=== PATIENT | female | born 1950 | race Two or more races ===

== ENCOUNTER 2019-12-17 18:21 | Outpatient (REF) | payer MEDICARE, SELFPAY ==
[2019-12-18 09:28] LABS: MRSA Nasal PCR NEGATIVE (Negative); SA Nasal PCR NEGATIVE (Negative)
== END 2019-12-17 18:22 | disposition home or self-care (01) ==
LOC: HO.LNP 18:21
PROVIDERS: Visit Provider Orthopaedic Surgery
DX: Z01.818 Encounter for other preprocedural examination (principal)
CPT/HCPCS: 87640; 87641

== ENCOUNTER → 2019-12-26 12:39 | Outpatient (BNVA) | payer MEDICARE, SELFPAY | PROVIDERS: PCP Internal Medicine; Referring Provider Internal Medicine; Visit Provider Physician Assistant | DX: Z01.818 Encounter for other preprocedural examination (principal); M17.11 Unilateral primary osteoarthritis, right knee | CPT/HCPCS: 99212 ==

== ENCOUNTER 2019-12-31 05:48 | Inpatient (IN) | payer MEDICARE, SELFPAY ==
[2019-12-17 09:33] VITALS: BMI 30.7
[2019-12-17 13:07] VITALS: BP 152/73; PULSE 92; RESP 20; O2SAT 98
--- NOTE | 2019-12-17 13:27 | P.CONAN_ITS ---
Documented by User: Christi Byrd 12/30/19 10:57 HPI - Anesthesia Eval Consult details Narrative: 69yo F for R TKA PCP cleared [facility] Past Medical History Medical History Arthritis Asthma Back pain Chronic cough Diabetes mellitus Elevated cholesterol GERD (gastroesophageal reflux disease) HTN (hypertension) Hypothyroid Insomnia Migraine Family History Family history of problems with anesthesia: No Surgical History Surgical History History of corneal transplant History of laparoscopic appendectomy Hx of colonoscopy Hx of dilation and curettage Hx of tubal ligation Status post cataract extraction and insertion of intraocular lens of left eye History of Problems with Anesthesia: No Social History Social History Are you a primary professional healthcare representative to a significant other at home: Yes Do you presently have visiting nurse or other home services: No Smoking Status: Never smoker Second Hand Smoke Exposure: No Use of substances other than those prescribed or required for medical reasons: No Have you been hit, kicked, punched, or otherwise hurt by someone within the past year? If so, by whom?: No Advance Directives: No Advance Directives Information Provided: No Advance Directives on File: No Recently lost weight without trying: No Meds Allergies Allergy/AdvReac Type Severity Reaction Status Date / Time No Known Allergies Allergy Verified 12/26/19 12:46 [No Known Allergies*] Home Medications Medication Instructions Recorded Confirmed Type hydrochlorothiazide 25 mg PO DAILY 12/17/19 12/17/19 History levothyroxine 50 mcg PO DAILY 12/17/19 12/17/19 History levothyroxine 200 mcg PO DAILY 12/17/19 12/17/19 History losartan 25 mg PO DAILY 12/17/19 12/31/19 History metformin 500 mg PO DAILY 12/17/19 12/17/19 History multivitamin 1 tab PO DAILY 12/17/19 12/17/19 History omeprazole 20 mg PO BID 12/17/19 12/17/19 History pravastatin 40 mg PO DAILY 12/17/19 12/17/19 History tramadol 50 mg PO BID PRN 12/17/19 12/17/19 History acetaminophen 300 mg-codeine 30 mg 1 tab PO BID PRN 12/26/19 History tablet Exam Exam Date and Time: December 17, 2019 1327 Height,Weight and Vital Signs: Height 5 ft Weight 71.214 kg Last Vital Signs Pulse 92 12/17/19 13:07 Resp 20 12/17/19 13:07 BP 152/73 H 12/17/19 13:07 Pulse Ox 98 12/17/19 13:07 Pertinent Lab Results Pertinent Lab Results: Lab Results 12/17/19 Range/Units 14:45 Blood Type B Positive Antibody Screen NEGATIVE Laboratory Tests 12/17/19 Unknown Nasal Screen MRSA (PCR) NEGATIVE Nasal S. aureus Screen NEGATIVE Outside provider labs 12/10/19: CBC WNL Lytes, Bun, Creat: WNL Narrative Narrative: PFT 12/04/19: No obstructive or restrictive defect. No significant bronchodilator response. Nml lung volumes and normal diffusion capacity. EKG 12/24/19: NSR@82, no change from previous Airway Mallampati Class: I TM Dist: >3cm Neck ROM: Full Loose/Missing/Broken Teeth: Yes Heart: RRR Lungs: CTAB Assessment and Plan Assessment Anesthesia Assessment: Anesthesia Plan Discussed and PAT Visit Documented by User: Lloyd Patrick MD 12/31/19 08:15 PMF Past Medical History Medical History Arthritis Asthma Back pain Chronic cough Diabetes mellitus Elevated cholesterol GERD (gastroesophageal reflux disease) HTN (hypertension) Hypothyroid Insomnia Migraine Surgical History Surgical History History of corneal transplant History of laparoscopic appendectomy Hx of colonoscopy Hx of dilation and curettage Hx of tubal ligation Status post cataract extraction and insertion of intraocular lens of left eye Social History Social History Are you a primary professional healthcare representative to a significant other at home: Yes Do you presently have visiting nurse or other home services: No Smoking Status: Never smoker Second Hand Smoke Exposure: No Use of substances other than those prescribed or required for medical reasons: No Have you been hit, kicked, punched, or otherwise hurt by someone within the past year? If so, by whom?: No Advance Directives: No Advance Directives Information Provided: No Advance Directives on File: No Recently lost weight without trying: No Meds Allergies Allergy/AdvReac Type Severity Reaction Status Date / Time No Known Allergies Allergy Verified 12/26/19 12:46 [No Known Allergies*] Home Medications Medication Instructions Recorded Confirmed Type hydrochlorothiazide 25 mg PO DAILY 12/17/19 12/17/19 History levothyroxine 50 mcg PO DAILY 12/17/19 12/17/19 History levothyroxine 200 mcg PO DAILY 12/17/19 12/17/19 History losartan 25 mg PO DAILY 12/17/19 12/31/19 History metformin 500 mg PO DAILY 12/17/19 12/17/19 History multivitamin 1 tab PO DAILY 12/17/19 12/17/19 History omeprazole 20 mg PO BID 12/17/19 12/17/19 History pravastatin 40 mg PO DAILY 12/17/19 12/17/19 History tramadol 50 mg PO BID PRN 12/17/19 12/17/19 History acetaminophen 300 mg-codeine 30 mg 1 tab PO BID PRN 12/26/19 History tablet Assessment and Plan Assessment Anesthesia Assessment: Anesthesia Plan Discussed, Smoking Cess. Discussed and Chart Reviewed Final Anesthetic Review NPO: Yes ASA Class: III Final Preanesthetic Review: No Changes in Pt Med Stat, Meds/Allgs Chart Reviewed, Consent Obtained/Reviewed and Anes Risks/Benef Reviewed Patient Risk: Intermediate Procedure Risk: Intermediate Anesthetic Plan Anesthetic Plan: MAC:, Spinal and Regional Block Disposition: Standard PACU
[2019-12-31] VITALS (12 sets, daily range): BP systolic 98–176; BP diastolic 53–81; PULSE 58–84; RESP 16–17; TEMP 36.3–36.9; O2SAT 96–100
[2019-12-31] MEDS: Gabapentin 600 MG TABLET PO (06:22)
[2019-12-31] MEDS: ceFAZolin Sodium/Dextrose,Iso 2 GM/50 ML PIGGYBACK IV ×2 (06:22→13:09)
[2019-12-31 06:23] LABS: Glucose, Whole Blood 113 mg/dL (60-115)
[2019-12-31] MEDS: Lactated Ringers 1,000 ML 100 ML IVCONT (06:41)
[2019-12-31 06:48] LABS: SARS COV2 PCR INHOUSE NEGATIVE (Negative)
--- NOTE | 2019-12-31 09:08 | PM.OP ---
Brief Operative Note Date of procedure: 12/31/19 Pre-op diagnosis: right knee OA Post-op diagnosis: same Procedure: right TKA Implants: [place] triathalon press fit PS/31s Surgeon: Ilya Nichols MD Anesthesia: regional and spinal Estimated blood loss (mL): 100 IV fluids (mL): 600 Pathology: other Condition: stable Disposition: PACU
--- NOTE | 2019-12-31 09:29 | MHC.SHP ---
Pre-Procedural Eval Section A The patient is an INPATIENT: No Changes since office visit: Yes Patient answered all questions; No Cold of Flu in the past 2 weeks, No New Medical Problems and No Changes in Medication The History & Physical has been completed within 30 days and I have reviewed it.: Yes Section B Chief Complaint: Orthopedic surgery Allergies: Allergies Allergy/AdvReac Type Severity Reaction Status Date / Time No Known Allergies Allergy Verified 12/26/19 12:46 [No Known Allergies*] Plan Patient has been examined and remains a candidate for the planned procedure
--- NOTE | 2019-12-31 10:16 | XR_ITS ---
EXAMINATION: XR KNEE, RIGHT CLINICAL INFORMATION: Post right knee replacement COMPARISON: Previous x-ray August 2019 TECHNIQUE: Two views of the right knee. FINDINGS: There is a new 3 component right knee replacement in satisfactory position. No fracture or dislocation is seen. There are postoperative changes to the soft tissues. XR/XR knee RT 2V IMPRESSION: Satisfactory appearance of right knee replacement.
[2019-12-31] MEDS: Sodium Chloride 0.45 % 1,000 ML 100 ML IVCONT ×2 (10:59→21:38)
[2019-12-31 11:06] LABS: Glucose, Whole Blood 115 mg/dL (60-115)
[2019-12-31] MEDS: oxyCODONE HCl Immed Release 5 MG TABLET PO ×3 (12:06→21:39)
[2019-12-31] MEDS: Acetaminophen 325 MG TABLET 650 MG PO ×2 (12:06→19:44)
--- NOTE | 2019-12-31 12:47 | OP_ITS ---
SURGEON: Ilya Nichols MD INDICATIONS: This is a 69-year-old woman with severe valgus pattern osteoarthritis, right knee, who was consented to undergo operative intervention after failure of conservative measures and inability to ambulate without severe discomfort and difficulty. PREOPERATIVE DIAGNOSIS: Right knee osteoarthritis. POSTOPERATIVE DIAGNOSIS: Right knee osteoarthritis. PROCEDURE PERFORMED: Right total knee arthroplasty. ESTIMATED BLOOD LOSS: 100 mL. COMPLICATIONS: None. ANESTHESIA: Spinal and regional. ASSISTANTS: OLGA Tay. SPECIMENS: FLUIDS: 600. PROCEDURE IN DETAIL: The patient was brought to the operative room, placed supine on the operative table and prepped and draped in standard sterile fashion. A time-out was called to identify proper site, procedure, proper surgeon. IV antibiotics per weight were administered. I began by making a standard midline incision down to the retinaculum and performed a medial parapatellar arthrotomy. I then resected the fat pad, used Freeland's line to establish my intramedullary femoral guide and then made my distal femoral cut in 5 degrees of valgus. I then sized a size 2 femur and made my anterior posterior and chamfer cuts, protecting the soft tissues at all times. I then made my box cut removing the PCL and turned my attention to the tibia. I took 2-mm off the lateral side in line with the tibial crest and posterior soft tissues were protected all times and an extension block was trialed to assess the extension. I was happy with the extent of resection. Therefore, a size 3 tibia was trialed. I was happy with the fit and this was trialed with the femur and I was happy with the range of motion and stability. Therefore, the undersurface of the patella was resurfaced and a 31S patella was placed. Again, I took the knee through range of motion, was happy with the tracking, range and stability. Therefore, the lug holes in the tibial metaphysis were prepared. All instrumentations were then removed. Copious irrigation was performed. The femoral bone plug was placed and placed the tibia and femur in standard fashion and then the patella. I then trialed a 9PS and was happy with the extension, range, stability and tracking. Therefore, my final 9PS modular insert was placed. I then did the 3 minute iodine soak with local TXA. Layered closure was then performed with cely on the skin. The patient was placed on sterile dressing, awakened from sedation, brought to recovery room in stable condition. There were no known complications. GRAFT OR IMPLANTS: [employer] Tri[employer]lon press-fit with PS/31S. MD NIKA Nava/WILLIE / [id number]
[2019-12-31] MEDS: HYDROmorphone HCl 0.5 MG/0.5 ML SYRINGE 0.25 MG IVPUSH ×2 (13:56→17:56)
--- NOTE | 2019-12-31 16:00 | MHC.CM.PN ---
nurse caretaker resort note electronic medical record reviewe met with patient and explained the role of the nurse caretaker resort in the transition of hospitla to home. patient is opertqtive day s/p r-tka. she was awake and alert , orientated x3 she reported she maggie alone she is active, independent in all alds and mobility she has no servcies in the home, patient sees dr dave lou at the [facility] , educated [facility] the [facility]. discharge plan home with naaly macedo for home physical theapry pcp patient to [facility] and follow up with, post hospital discharge orthopedic surgical follow up per discharge instructions transportation family
--- NOTE | 2019-12-31 16:24 | P.CONIM_ITS ---
History of Present Illness Data of Consult Primary Care Provider: Unknown Physician [facility] Medical History Arthritis Asthma Back pain Chronic cough Diabetes mellitus Elevated cholesterol GERD (gastroesophageal reflux disease) HTN (hypertension) Hypothyroid Insomnia Migraine Surgical History History of corneal transplant History of laparoscopic appendectomy Hx of colonoscopy Hx of dilation and curettage Hx of tubal ligation Status post cataract extraction and insertion of intraocular lens of left eye Social History Are you a primary family day care provider to a significant other at home: Yes Do you presently have visiting nurse or other home services: No Smoking Status: Never smoker Second Hand Smoke Exposure: No Use of substances other than those prescribed or required for medical reasons: No Have you been hit, kicked, punched, or otherwise hurt by someone within the past year? If so, by whom?: No Advance Directives: No Advance Directives Information Provided: No Advance Directives on File: No Recently lost weight without trying: No service: No Current occupational status: unemployed Meds Allergies Allergy/AdvReac Type Severity Reaction Status Date / Time No Known Allergies Allergy Verified 12/26/19 12:46 [No Known Allergies*] Home Medications Medication Instructions Recorded Confirmed Type hydrochlorothiazide 25 mg PO DAILY 12/17/19 12/17/19 History levothyroxine 50 mcg PO DAILY 12/17/19 12/17/19 History levothyroxine 200 mcg PO DAILY 12/17/19 12/17/19 History losartan 25 mg PO DAILY 12/17/19 12/31/19 History metformin 500 mg PO DAILY 12/17/19 12/17/19 History multivitamin 1 tab PO DAILY 12/17/19 12/17/19 History omeprazole 20 mg PO BID 12/17/19 12/17/19 History pravastatin 40 mg PO DAILY 12/17/19 12/17/19 History tramadol 50 mg PO BID PRN 12/17/19 12/17/19 History acetaminophen 300 mg-codeine 30 mg 1 tab PO BID PRN 12/26/19 History tablet Physical Exam Vital Signs and Narrative: Vital Signs: Last Vital Signs Temp 98.2 F 12/31/19 15:05 Pulse 66 12/31/19 15:05 Resp 17 12/31/19 15:05 BP 154/75 H 12/31/19 15:05 Pulse Ox 100 12/31/19 15:05 Body Mass Index 30.7 Results Labs Labs: Laboratory Tests 12/17/19 12/31/19 12/31/19 14:45 05:41 06:19 POC Glucose 113 Coronavirus (PCR) NEGATIVE Blood Type B Positive Antibody Screen NEGATIVE 12/31/19 11:02 POC Glucose 115 Coronavirus (PCR) Blood Type Antibody Screen
--- NOTE | 2019-12-31 20:03 | PM.IMCN ---
History of Present Illness Data of Consult Service Date: 12/31/19 Requesting physician: Vinicio Sauceda Primary Care Provider: Unknown Physician HPI Reason for consult: Medical Management 69-year-old woman admitted by Orthopedic surgery status post right total knee arthroplasty. Surgery was unremarkable. Patient has been able to eat and drink without any nausea or vomiting. She has been able to get up and walk to the bathroom. Vital signs are stable though her blood pressure is mildly elevated. She is currently resting in bed comfortably. Review of Systems Review of Systems: Denies any recent fever chills or decrease in appetite respiratory denies any shortness of breath coverage production cardiovascular is adjustment of any PND or edema gastrointestinal denies any dysphagia abdominal pain nausea vomiting or diarrhea genitourinary denies any dysuria frequency or hematuria musculoskeletal Knee pain neuropsych denies any weakness or seizures all other systems reviewed are negative [facility] Medical History Arthritis Asthma Back pain Chronic cough Diabetes mellitus Elevated cholesterol GERD (gastroesophageal reflux disease) HTN (hypertension) Hypothyroid Insomnia Migraine Surgical History History of corneal transplant History of laparoscopic appendectomy Hx of colonoscopy Hx of dilation and curettage Hx of tubal ligation Status post cataract extraction and insertion of intraocular lens of left eye Social History Are you a primary healthcare management consultant to a significant other at home: Yes Do you presently have visiting nurse or other home services: No Smoking Status: Never smoker Second Hand Smoke Exposure: No Use of substances other than those prescribed or required for medical reasons: No Currently Displaying Signs/Symptoms of Drug Intoxication Withdrawal: No Have you been hit, kicked, punched, or otherwise hurt by someone within the past year? If so, by whom?: No Advance Directives: No Advance Directives Information Provided: No Advance Directives on File: No Do you have thoughts of harming others: None Do you have a plan to hurt others: No Plan Recently lost weight without trying: No service: No Current occupational status: unemployed Meds Allergies Allergy/AdvReac Type Severity Reaction Status Date / Time No Known Allergies Allergy Verified 12/26/19 12:46 [No Known Allergies*] Home Medications Medication Instructions Recorded Confirmed Type hydrochlorothiazide 25 mg PO DAILY 12/17/19 12/17/19 History levothyroxine 50 mcg PO DAILY 12/17/19 12/17/19 History levothyroxine 200 mcg PO DAILY 12/17/19 12/17/19 History losartan 25 mg PO DAILY 12/17/19 12/31/19 History metformin 500 mg PO DAILY 12/17/19 12/17/19 History multivitamin 1 tab PO DAILY 12/17/19 12/17/19 History omeprazole 20 mg PO BID 12/17/19 12/17/19 History pravastatin 40 mg PO DAILY 12/17/19 12/17/19 History tramadol 50 mg PO BID PRN 12/17/19 12/17/19 History acetaminophen 300 mg-codeine 30 mg 1 tab PO BID PRN 12/26/19 History tablet Physical Exam Vital Signs and Narrative: Vital Signs: Last Vital Signs Temp 98.2 F 12/31/19 19:51 Pulse 84 12/31/19 19:51 Resp 16 12/31/19 19:51 BP 176/81 H 12/31/19 19:51 Pulse Ox 98 12/31/19 19:51 Body Mass Index 30.7 Appearing in no acute distress head is normocephalic atraumatic eyes pupils are PERRLA sclera is anicteric mouth throat mucous membranes are intact and moist neck is supple no lymphadenopathy, no JVD noted lung sounds are clear to auscultation heart regular rate rhythm, clear S1, S2 positive bowel sounds, abdomen is soft, nontender neuro patient is alert x3, no focal deficits msk dressing to right knee clean and intact Results Labs Labs: Laboratory Tests 12/17/19 12/31/19 12/31/19 14:45 05:41 06:19 POC Glucose 113 Coronavirus (PCR) NEGATIVE Blood Type B Positive Antibody Screen NEGATIVE 12/31/19 11:02 POC Glucose 115 Coronavirus (PCR) Blood Type Antibody Screen Assessment and Plan (1) Osteoarthritis of right knee: Status: Acute 69 year old women status post right total knee arthroplasty. Right total knee arthroplasty. Management as per surgical team. Pain management. Diabetes mellitus. Sliding scale, ADA diet. Hypertension . Continue hydrochlorothiazide And losartan. Hyperlipidemia . Continue statin. Hypothyroidism . Continue levothyroxine. DVT prophylaxis as per surgical team. Case discussed with Dr. Parekh Full code
[2019-12-31 20:50] LABS: Glucose, Whole Blood 166 mg/dL (60-115)
[2019-12-31] MEDS: Omeprazole 20 MG CAPSULE.DR PO (21:39)
[2019-12-31] MEDS: hydroCHLOROthiazide 25 MG TABLET PO (21:39)
[2019-12-31] MEDS: Celecoxib 200 MG CAPSULE PO (21:39)
[2019-12-31] MEDS: oxyCODONE HCl ER 10 MG TAB.ER.12H PO (21:39)
[2019-12-31] MEDS: Losartan Potassium 25 MG TABLET PO (21:40)
[2020-01-01] VITALS (9 sets, daily range): BP systolic 126–177; BP diastolic 56–82; PULSE 80–99; RESP 16–19; TEMP 36.4–37.3; O2SAT 97–100; BMI 30.7
[2020-01-01] MEDS: HYDROmorphone HCl 0.5 MG/0.5 ML SYRINGE 0.25 MG IVPUSH ×4 (01:36→17:26)
--- NOTE | 2020-01-01 03:48 | PC.NURSE ---
pt's bp at 1999 was 176/81. Polwire message sent to Haylee Anna, she said to start BP meds tonight. Losartan and hydrochlorathiazide given at bedtime, pt's BP at 0000 was 150/72.
[2020-01-01] MEDS: oxyCODONE HCl Immed Release 5 MG TABLET PO ×4 (05:20→20:34)
[2020-01-01] MEDS: Levothyroxine Sodium 50 MCG TABLET PO (05:22)
[2020-01-01] MEDS: Levothyroxine Sodium 200 MCG TABLET PO (05:22)
[2020-01-01] MEDS: Acetaminophen 325 MG TABLET 650 MG PO ×2 (05:22→14:20)
[2020-01-01] MEDS: Sodium Chloride 0.45 % 1,000 ML 100 ML IVCONT ×2 (05:55→17:29)
[2020-01-01 06:45] LABS: Hematocrit 35.9 % (37-47); Hemoglobin 11.4 g/dl (12.0-16.0)
[2020-01-01 06:59] LABS: Anion Gap 13 (12-20); Blood Urea Nitrogen 8 mg/dL (9-16); Calcium 8.7 mg/dL (8.4-10.2); Carbon Dioxide 24 mmol/L (22-29); Chloride 96 mmol/L (96-108); Creatinine Clr Calc Pharmacy 73.3; Estimated Glomerular Filt Rate > 60; Glucose Fasting 160 mg/dL (60-99); Potassium 3.6 mmol/l (3.3-5.1); Sodium 129 mmol/L (135-145)
[2020-01-01] MEDS: Losartan Potassium 25 MG TABLET PO (07:47)
[2020-01-01] MEDS: hydroCHLOROthiazide 25 MG TABLET PO (07:47)
[2020-01-01 07:51] LABS: Glucose, Whole Blood 155 mg/dL (60-115)
[2020-01-01] MEDS: Celecoxib 200 MG CAPSULE PO ×2 (08:27→20:34)
[2020-01-01] MEDS: Pravastatin Sodium 40 MG TABLET PO (08:27)
[2020-01-01] MEDS: oxyCODONE HCl ER 10 MG TAB.ER.12H PO ×2 (08:27→20:34)
[2020-01-01] MEDS: Multivitamin TABLET 1 TAB PO (08:27)
[2020-01-01] MEDS: Omeprazole 20 MG CAPSULE.DR PO ×2 (08:27→20:34)
--- NOTE | 2020-01-01 09:13 | HO.PM.IMPN ---
Subjective Subjective Date of Service: 01/01/20 Interval History: Seen in follow up for for med consult s/p knee replacement post op day 1, doing well, 6/10 pain, able to walk with walker Review of Systems Gen: no fever or covid symptoms Musck: knee pain Physical Exam Vital Signs: Vital Signs: Vital Signs Temp Pulse Resp BP Pulse Ox 01/01/20 07:33 97.5 F 87 17 177/82 H 99 01/01/20 04:00 98.8 F 81 16 159/82 H 97 01/01/20 00:00 98.3 F 86 18 150/72 H 12/31/19 21:40 84 176/81 H 12/31/19 19:51 98.2 F 84 16 176/81 H 98 12/31/19 15:05 98.2 F 66 17 154/75 H 100 12/31/19 13:58 67 134/67 99 12/31/19 10:38 97.3 F 67 134/67 99 12/31/19 10:00 58 16 120/60 98 12/31/19 09:45 60 16 123/58 L 99 12/31/19 09:30 60 16 111/58 L 99 12/31/19 09:25 60 16 105/58 L 97 12/31/19 09:20 66 16 102/53 L 96 12/31/19 09:15 97.5 F 68 16 98/53 L 97 Constitutional Awake and Alert, No apparent distress Neck Supple, No lymphadenopathy Cardiovascular RRR, No M/R/G, S1 S2, No S3 S4, No pedal edema Respiratory Lungs clear, No respiratory distress Gastrointestinal Non tender, Non-distended Skin knee replacement dressing intact Neurological Alert & oriented x3 Psychological Appropriate affect Objective Data Current Medications Generic Name Dose Route Start Last Admin Trade Name Freq PRN Reason Stop Dose Admin Acetaminophen 650 mg 12/31/19 10:38 01/01/20 05:22 Acetaminophen 325 Mg Tablet PO 650 mg Q6H PRN Administration Pain, Mild (Pain Scale 1-3) Albuterol Sulfate 2.5 mg 12/31/19 05:43 Albuterol Sulfate (0.083%) 2.5 Mg/3 Ml Vial.Neb INHALE ONCE PRN Shortness of Breath/Wheezing Celecoxib 200 mg 12/31/19 21:00 01/01/20 08:27 Celecoxib 200 Mg Capsule PO 200 mg BID BENIGNO Administration Hydrochlorothiazide 25 mg 01/01/20 09:00 01/01/20 07:47 Hydrochlorothiazide 25 Mg Tablet PO 25 mg DAILY BENIGNO Administration Protocol Hydromorphone HCl 0.25 mg 12/31/19 10:38 01/01/20 07:46 Hydromorphone Hcl 0.5 Mg/0.5 Ml Syringe IVPUSH 0.25 mg Q4H PRN Administration Pain, Severe (Pain Scale 7-10) Sodium Chloride 1,000 mls @ 100 mls/hr 12/31/19 09:30 01/01/20 05:55 IVCONT 100 mls/hr .Q10H BENIGNO Administration Insulin Human Lispro 0 unit 12/31/19 21:00 01/01/20 07:50 Insulin Lispro 100 Unit/Ml 3 Ml Vial SUBCUT Not Given [facility] Protocol Levothyroxine Sodium 50 mcg 01/01/20 06:30 01/01/20 05:22 Levothyroxine Sodium 50 Mcg Tablet PO 50 mcg DAILY@0630 BENIGNO Administration Levothyroxine Sodium 200 mcg 01/01/20 06:30 01/01/20 05:22 Levothyroxine Sodium 200 Mcg Tablet PO 200 mcg DAILY@0630 BENIGNO Administration Losartan Potassium 25 mg 01/01/20 09:00 01/01/20 07:47 Losartan Potassium 25 Mg Tablet PO 25 mg DAILY BENIGNO Administration Protocol Multivitamins/Vitamin C 1 tab 01/01/20 09:00 01/01/20 08:27 Multivitamin Tablet PO 1 tab DAILY BENIGNO Administration Naloxone HCl 0.2 mg 12/31/19 10:38 Naloxone Hcl 0.4 Mg/Ml Vial IVPUSH Q2M PRN Excessive sedation or RR < 8 Omeprazole 20 mg 12/31/19 21:00 01/01/20 08:27 Omeprazole 20 Mg Capsule.Dr PO 20 mg BID BENIGNO Administration Oxycodone HCl 5 mg 12/31/19 10:38 01/01/20 05:20 Oxycodone Hcl Immed Release 5 Mg Tablet PO 5 mg Q4H PRN Administration Pain, Moderate (Pain Scale 4-6 Oxycodone HCl 10 mg 12/31/19 21:00 01/01/20 08:27 Oxycodone Hcl Er 10 Mg Tab.Er.12h PO 10 mg BID BENIGNO Administration Pravastatin Sodium 40 mg 01/01/20 09:00 01/01/20 08:27 Pravastatin Sodium 40 Mg Tablet PO 40 mg DAILY BENIGNO Administration Senna 17.2 mg 12/31/19 10:38 Sennosides 8.6 Mg Tablet PO BEDTIME PRN Constipation Sodium Chloride 3 ml 12/31/19 16:00 01/01/20 07:50 0.9 % Sodium Chloride Flush 3 Ml Syringe IVFLUSH Not Given QSHIFT BENIGNO Sodium Chloride 3 ml 12/31/19 16:00 01/01/20 07:57 0.9 % Sodium Chloride Flush 3 Ml Syringe IVFLUSH Not Given QSHIFT BENIGNO Labs CBC & Chem 7: 01/01/20 05:41 01/01/20 05:41 Assessment and Plan (1) Osteoarthritis of right knee: Status: Acute (2) Hypothyroid: Status: Acute (3) Diabetes mellitus: Problem details: NIDDM Status: Acute (4) HTN (hypertension): Status: Acute Assessment and Plan: 69/F with HTN, DM status post right total knee arthroplasty. Right total knee arthroplasty. Defer manaement to ortho service Diabetes mellitus. Restart Metformin 500 daily, SSI and ADA Hypertension . Continue hydrochlorothiazide And losartan. BP is high this morning and if remain high adjust meds Hyperlipidemia . Continue Pravastatin Hypothyroidism . Continue levothyroxine. DVT prophylaxis as per surgical team.
[2020-01-01] MEDS: Aspirin 325 MG TABLET PO ×2 (10:08→20:34)
--- NOTE | 2020-01-01 10:47 | P.PNOP_ITS ---
Subjective Subjective Interval history: POD 1 s/p RT tka No overnight events, doing well, working with PT. NO concerns. Physical Exam Vital Signs: Vital Signs: Vital Signs Temp Pulse Resp BP Pulse Ox 01/01/20 09:13 87 177/82 H 99 01/01/20 07:33 97.5 F 87 17 177/82 H 99 01/01/20 04:00 98.8 F 81 16 159/82 H 97 01/01/20 00:00 98.3 F 86 18 150/72 H 12/31/19 21:40 84 176/81 H 12/31/19 19:51 98.2 F 84 16 176/81 H 98 12/31/19 15:05 98.2 F 66 17 154/75 H 100 12/31/19 13:58 67 134/67 99 Body Mass Index 30.7 Const: General: cooperative, healthy appearing and no acute distress Resp: Effort & Inspection: normal respiratory effort and able to speak in complete sentences Cardio: Rate: regular rate Peripheral pulses: Peripheral pulses 2+ throughout GI: Inspection: Yes normal to inspection Palpation (GI): Soft to palpation Skin: General skin exam: no rashes or lesions noted Extrem: Other: Right knee skin intact, bandage intact no drainage, no erythema, mild edema Progress Note: A&P Assessment and plan (1) Status post total right knee replacement: Status: Acute Assessment and Plan: Continue pain mgmnt Begin asa for dvt ppx begin PT for RT TKA Dispo planning-Pending PT eval, pain mgmnt Fall Risk Details Current Medications: Current Medications Generic Name Dose Route Start Last Admin Trade Name Tundeq PRN Reason Stop Dose Admin Acetaminophen 650 mg 12/31/19 10:38 01/01/20 05:22 Acetaminophen 325 Mg Tablet PO 650 mg Q6H PRN Administration Pain, Mild (Pain Scale 1-3) Albuterol Sulfate 2.5 mg 12/31/19 05:43 Albuterol Sulfate (0.083%) 2.5 Mg/3 Ml Vial.Neb INHALE ONCE PRN Shortness of Breath/Wheezing Aspirin 325 mg 01/01/20 10:00 01/01/20 10:08 Aspirin 325 Mg Tablet PO 325 mg BID BENIGNO Administration Celecoxib 200 mg 12/31/19 21:00 01/01/20 08:27 Celecoxib 200 Mg Capsule PO 200 mg BID BENIGNO Administration Hydrochlorothiazide 25 mg 01/01/20 09:00 01/01/20 07:47 Hydrochlorothiazide 25 Mg Tablet PO 25 mg DAILY BENIGNO Administration Protocol Hydromorphone HCl 0.25 mg 12/31/19 10:38 01/01/20 07:46 Hydromorphone Hcl 0.5 Mg/0.5 Ml Syringe IVPUSH 0.25 mg Q4H PRN Administration Pain, Severe (Pain Scale 7-10) Sodium Chloride 1,000 mls @ 100 mls/hr 12/31/19 09:30 01/01/20 05:55 IVCONT 100 mls/hr .Q10H BENIGNO Administration Insulin Human Lispro 0 unit 12/31/19 21:00 01/01/20 07:50 Insulin Lispro 100 Unit/Ml 3 Ml Vial SUBCUT Not Given QIDACHS [facility] Protocol Levothyroxine Sodium 50 mcg 01/01/20 06:30 01/01/20 05:22 Levothyroxine Sodium 50 Mcg Tablet PO 50 mcg DAILY@0630 BENIGNO Administration Levothyroxine Sodium 200 mcg 01/01/20 06:30 01/01/20 05:22 Levothyroxine Sodium 200 Mcg Tablet PO 200 mcg DAILY@0630 BENIGNO Administration Losartan Potassium 25 mg 01/01/20 09:00 01/01/20 07:47 Losartan Potassium 25 Mg Tablet PO 25 mg DAILY [facility] Administration Protocol Multivitamins/Vitamin C 1 tab 01/01/20 09:00 01/01/20 08:27 Multivitamin Tablet PO 1 tab DAILY BENIGNO Administration Naloxone HCl 0.2 mg 12/31/19 10:38 Naloxone Hcl 0.4 Mg/Ml Vial IVPUSH Q2M PRN Excessive sedation or RR < 8 Omeprazole 20 mg 12/31/19 21:00 01/01/20 08:27 Omeprazole 20 Mg Capsule.Dr PO 20 mg BID BENIGNO Administration Oxycodone HCl 5 mg 12/31/19 10:38 01/01/20 09:32 Oxycodone Hcl Immed Release 5 Mg Tablet PO 5 mg Q4H PRN Administration Pain, Moderate (Pain Scale 4-6 Oxycodone HCl 10 mg 12/31/19 21:00 01/01/20 08:27 Oxycodone Hcl Er 10 Mg Tab.Er.12h PO 10 mg BID BENIGNO Administration Pravastatin Sodium 40 mg 01/01/20 09:00 01/01/20 08:27 Pravastatin Sodium 40 Mg Tablet PO 40 mg DAILY BENIGNO Administration Senna 17.2 mg 12/31/19 10:38 Sennosides 8.6 Mg Tablet PO BEDTIME PRN Constipation Sodium Chloride 3 ml 12/31/19 16:00 01/01/20 07:50 0.9 % Sodium Chloride Flush 3 Ml Syringe IVFLUSH Not Given QSHIFT BENIGNO Sodium Chloride 3 ml 12/31/19 16:00 01/01/20 07:57 0.9 % Sodium Chloride Flush 3 Ml Syringe IVFLUSH Not Given QSHIFT BENIGNO Time Spent With Patient Time: Total time spent is greater than 50% in coordination of care (as documented) at patient's floor/unit and/or counseling patient: Time with patient: 15 - 24 minutes
[2020-01-01 11:38] LABS: Glucose, Whole Blood 143 mg/dL (60-115)
--- NOTE | 2020-01-01 13:58 | HO.POSTANES ---
Post Anesthesia Evaluation Post Anesthesia Evaluation Vital Signs: Vital Signs Temp Pulse Resp BP Pulse Ox 01/01/20 13:48 80 131/62 98 01/01/20 11:15 99.2 F 80 17 131/62 98 01/01/20 09:13 87 177/82 H 99 01/01/20 07:33 97.5 F 87 17 177/82 H 99 01/01/20 04:00 98.8 F 81 16 159/82 H 97 Anesthesia: Spinal Mental Status: Awake Pain Control: Satisfactory Nausea/Vomiting: None Hydration: Adequate Anesthesia-Related Issues: No Anes. Related Issues
[2020-01-01 15:26] LABS: Glucose, Whole Blood 194 mg/dL (60-115)
--- NOTE | 2020-01-01 15:43 | MHC.CM.PN ---
NURSE BREAKFAST AND ROOM ATTENDANT NOTE ELECTRONIC MEDICAL RECORD REVIEWED ALNG WITH CASE DISCUSSED WITH STAFF NURSE, MET WITH PATIENT TODAY , SHE REPORTED THAT SHE WAS NOT ABLE TO SLEEP LAST NIGHT SECONDARY TO PAIN AND BEING IN THE HOSPITAL AND WAS PRETTY TIRED THIS MORNING LATER VISIT WITH HER SHE REPORTED THAT SHE DID BETTER WITH PHYSICAL THEAPRY THAN SHE THOUGHT SHE WOULD AND ANTICIPATED BEING DISCHARGED IN TWO DAYS , I INFORMED HER THAT SHE WAS PROGRESSING WELL WITH THEARPY AND MEDICALLY CLEARED SHE MIGHT BE DISCHARGED TOMORROW . I EXPLAINED THAT THE VNA AGENCY SHE CHOSE WOULD BE OUT THE FOLLOWING DAY FOR HOME PHYSICAL THEARPY DISCHARGE HOME WITH [facility] HOME PHYSICAL THEAPRY PCP -PATIENT TO FOLLOW UP WITH HER PCP AT [facility] DIS[facility] FOLOW UP TRANSPORTATION FAMILY
[2020-01-01 21:15] LABS: Glucose, Whole Blood 126 mg/dL (60-115)
[2020-01-02 01:08] VITALS: RESP 16
[2020-01-02] MEDS: HYDROmorphone HCl 0.5 MG/0.5 ML SYRINGE 0.25 MG IVPUSH (01:08)
[2020-01-02] MEDS: Sodium Chloride 0.45 % 1,000 ML 100 ML IVCONT (01:08)
[2020-01-02 03:09] VITALS: BP 139/58; PULSE 88; RESP 19; TEMP 37.1; O2SAT 96
[2020-01-02] MEDS: oxyCODONE HCl Immed Release 5 MG TABLET PO ×2 (05:27→10:20)
[2020-01-02] MEDS: Acetaminophen 325 MG TABLET 650 MG PO (05:27)
[2020-01-02] MEDS: Levothyroxine Sodium 200 MCG TABLET PO (05:28)
[2020-01-02] MEDS: Levothyroxine Sodium 50 MCG TABLET PO (05:28)
[2020-01-02 06:49] LABS: Hematocrit 31.8 % (37-47); Hemoglobin 10.3 g/dl (12.0-16.0)
[2020-01-02 07:20] LABS: Anion Gap 11 (12-20); Blood Urea Nitrogen 11 mg/dL (9-16); Calcium 8.5 mg/dL (8.4-10.2); Carbon Dioxide 28 mmol/L (22-29); Chloride 101 mmol/L (96-108); Creatinine Clr Calc Pharmacy 67.7; Estimated Glomerular Filt Rate > 60; Glucose Fasting 142 mg/dL (60-99); Potassium 3.9 mmol/l (3.3-5.1); Sodium 136 mmol/L (135-145)
[2020-01-02 08:00] VITALS: BP 118/68; PULSE 81; RESP 18; TEMP 36.6; O2SAT 97
[2020-01-02 08:25] LABS: Glucose, Whole Blood 132 mg/dL (60-115)
[2020-01-02] MEDS: Multivitamin TABLET 1 TAB PO (08:44)
[2020-01-02] MEDS: Pravastatin Sodium 40 MG TABLET PO (08:44)
[2020-01-02] MEDS: Celecoxib 200 MG CAPSULE PO (08:44)
[2020-01-02] MEDS: Omeprazole 20 MG CAPSULE.DR PO (08:44)
[2020-01-02] MEDS: Aspirin 325 MG TABLET PO (08:44)
[2020-01-02] MEDS: oxyCODONE HCl ER 10 MG TAB.ER.12H PO (08:44)
[2020-01-02] MEDS: Losartan Potassium 25 MG TABLET PO (08:44)
[2020-01-02] MEDS: hydroCHLOROthiazide 25 MG TABLET PO (08:45)
--- NOTE | 2020-01-02 09:43 | P.PNIM_ITS ---
Subjective Subjective Interval History: POD 2 s/p RT TKR. No new issues. Pain is controlled Physical Exam Vital Signs: Vital Signs: Vital Signs Temp Pulse Resp BP Pulse Ox 01/02/20 08:00 97.8 F 81 18 118/68 97 01/02/20 03:09 98.7 F 88 19 139/58 L 96 01/02/20 01:08 16 01/01/20 23:18 98.6 F 98 19 130/58 L 97 01/01/20 20:00 98.2 F 99 19 126/56 L 100 01/01/20 15:16 97.7 F 87 18 140/72 H 99 01/01/20 13:48 80 131/62 98 01/01/20 11:15 99.2 F 80 17 131/62 98 Body Mass Index 30.7 Constitutional Awake and Alert, No apparent distress Neck Supple, No lymphadenopathy Cardiovascular RRR, No M/R/G, S1 S2, No S3 S4, No pedal edema Respiratory Lungs clear, No respiratory distress Gastrointestinal Non tender, Non-distended Skin knee replacement dressing intact Neurological Alert & oriented x3 Psychological Appropriate affect Objective Data Current Medications Generic Name Dose Route Start Last Admin Trade Name Freq PRN Reason Stop Dose Admin Acetaminophen 650 mg 12/31/19 10:38 01/02/20 05:27 Acetaminophen 325 Mg Tablet PO 650 mg Q6H PRN Administration Pain, Mild (Pain Scale 1-3) Albuterol Sulfate 2.5 mg 12/31/19 05:43 Albuterol Sulfate (0.083%) 2.5 Mg/3 Ml Vial.Neb INHALE ONCE PRN Shortness of Breath/Wheezing Aspirin 325 mg 01/01/20 10:00 01/02/20 08:44 Aspirin 325 Mg Tablet PO 325 mg BID BENIGNO Administration Celecoxib 200 mg 12/31/19 21:00 01/02/20 08:44 Celecoxib 200 Mg Capsule PO 200 mg BID BENIGNO Administration Hydrochlorothiazide 25 mg 01/01/20 09:00 01/02/20 08:45 Hydrochlorothiazide 25 Mg Tablet PO 25 mg DAILY BENIGNO Administration Protocol Hydromorphone HCl 0.25 mg 12/31/19 10:38 01/02/20 01:08 Hydromorphone Hcl 0.5 Mg/0.5 Ml Syringe IVPUSH 0.25 mg Q4H PRN Administration Pain, Severe (Pain Scale 7-10) Sodium Chloride 1,000 mls @ 100 mls/hr 12/31/19 09:30 01/02/20 01:08 IVCONT 100 mls/hr .Q10H BENIGNO Administration Insulin Human Lispro 0 unit 12/31/19 21:00 01/02/20 08:31 Insulin Lispro 100 Unit/Ml 3 Ml Vial SUBCUT Not Given QIDACHS [facility] Protocol Levothyroxine Sodium 50 mcg 01/01/20 06:30 01/02/20 05:28 Levothyroxine Sodium 50 Mcg Tablet PO 50 mcg DAILY@0630 BENIGNO Administration Levothyroxine Sodium 200 mcg 01/01/20 06:30 01/02/20 05:28 Levothyroxine Sodium 200 Mcg Tablet PO 200 mcg DAILY@0630 BENIGNO Administration Losartan Potassium 25 mg 01/01/20 09:00 01/02/20 08:44 Losartan Potassium 25 Mg Tablet PO 25 mg DAILY BENIGNO Administration Protocol Multivitamins/Vitamin C 1 tab 01/01/20 09:00 01/02/20 08:44 Multivitamin Tablet PO 1 tab DAILY [facility] Administration Naloxone HCl 0.2 mg 12/31/19 10:38 Naloxone Hcl 0.4 Mg/Ml Vial IVPUSH Q2M PRN Excessive sedation or RR < 8 Omeprazole 20 mg 12/31/19 21:00 01/02/20 08:44 Omeprazole 20 Mg Capsule.Dr PO 20 mg BID BENIGNO Administration Oxycodone HCl 5 mg 12/31/19 10:38 01/02/20 05:27 Oxycodone Hcl Immed Release 5 Mg Tablet PO 5 mg Q4H PRN Administration Pain, Moderate (Pain Scale 4-6 Oxycodone HCl 10 mg 12/31/19 21:00 01/02/20 08:44 Oxycodone Hcl Er 10 Mg Tab.Er.12h PO 10 mg BID BENIGNO Administration Pravastatin Sodium 40 mg 01/01/20 09:00 01/02/20 08:44 Pravastatin Sodium 40 Mg Tablet PO 40 mg DAILY [facility] Administration Senna 17.2 mg 12/31/19 10:38 Sennosides 8.6 Mg Tablet PO BEDTIME PRN Constipation Sodium Chloride 3 ml 12/31/19 16:00 01/02/20 07:27 0.9 % Sodium Chloride Flush 3 Ml Syringe IVFLUSH Not Given QSHIFT BENIGNO Sodium Chloride 3 ml 12/31/19 16:00 01/02/20 08:44 0.9 % Sodium Chloride Flush 3 Ml Syringe IVFLUSH Not Given QSHIFT BENIGNO Labs CBC & Chem 7: 01/02/20 06:10 01/02/20 06:10 Assessment and Plan (1) Osteoarthritis of right knee: Status: Acute (2) Hypothyroid: Status: Acute (3) Diabetes mellitus: Problem details: NIDDM Status: Acute (4) HTN (hypertension): Status: Acute Assessment and Plan: 69/F with HTN, DM status post right total knee arthroplasty. Right total knee arthroplasty. Defer manaement to ortho service Diabetes mellitus. continue home meds upon discharge Hypertension . Continue hydrochlorothiazide and Losartan. Hyperlipidemia . Continue Pravastatin Hypothyroidism . Continue levothyroxine. Medically ok to discharge and will sign off at this time. DVT prophylaxis as per surgical team.
--- NOTE | 2020-01-02 10:11 | P.DS_ITS ---
DS: Providers Provider Date of admission: 12/31/19 05:48 Primary care physician: Unknown Physician Consults: 12/31/19 10:38 Consult to Hospitalist Routine Consulting Provider: Hospitalist Reason for consultation: medical management, diabetes, DS: Diagnosis Discharge Diagnosis (1) Status post total right knee replacement: Status: Acute Problem details: Ms. Wang is a 69-year-old female who presented to our office with ongoing rig ht knee pain. She was found have osteoarthritis of the right knee and failed all conservative measures therefore she consented to move forward with right total knee arthroplasty. DS: Summary Hospital Course Hospital Course: Ms. Cruz underwent a successful right total knee arthroplasty. She was transferred to PACU and then to the floor where she recovered. During her stay her vitals were stable afebrile at 97.8. Labs unremarkable H&H of 10.3 and 31.8. Postop day 1 she was started on aspirin 325 mg p.o. b.i.d. for DVT prophylaxis and she received physical therapy services twice a day. Prior to discharge her Aquacel dressing was changed incision clean dry and intact new Aquacel dressing applied and the plan is to be sent home with VNA services. Time spent discussing smoking cessation with patient: more than 10 minutes Time Spent with Patient Time attestation: Total time spent providing and/or coordinating discharge services: Physical Exam Vital Signs: Vital Signs: Vital Signs Temp Pulse Resp BP Pulse Ox 01/02/20 08:00 97.8 F 81 18 118/68 97 01/02/20 03:09 98.7 F 88 19 139/58 L 96 01/02/20 01:08 16 01/01/20 23:18 98.6 F 98 19 130/58 L 97 01/01/20 20:00 98.2 F 99 19 126/56 L 100 01/01/20 15:16 97.7 F 87 18 140/72 H 99 01/01/20 13:48 80 131/62 98 01/01/20 11:15 99.2 F 80 17 131/62 98 Body Mass Index 30.7 Const: General: cooperative, healthy appearing and no acute distress Resp: Effort & Inspection: normal respiratory effort and able to speak in complete sentences Cardio: Rate: regular rate Peripheral pulses: Peripheral pulses 2+ throughout GI: Inspection: Yes normal to inspection Palpation (GI): Soft to palpation Skin: General skin exam: no rashes or lesions noted Extrem: Other: Right knee incision clean dry and intact. No erythema or drainage. Mild edema. Sensation intact. DS: Data Data Completed and Pending Completed studies during hospitalization [Text1]: Pending at discharge 12/31/19 09:32 Surgical [PTH] Routine Labs on day of discharge: Labs from last 24 hours 01/02/20 01/02/20 01/02/20 08:22 06:10 06:10 Hgb 10.3 L Hct 31.8 L Sodium 136 Potassium 3.9 Chloride 101 Carbon Dioxide 28 Anion Gap 11 L BUN 11 Creatinine 0.67 Estim Creat Clear Calc 67.7 Estimated GFR > 60 POC Glucose 132 H Fasting Glucose 142 H Calcium 8.5 01/01/20 01/01/20 01/01/20 21:09 15:15 11:33 Hgb Hct Sodium Potassium Chloride Carbon Dioxide Anion Gap BUN Creatinine Estim Creat Clear Calc Estimated GFR POC Glucose 126 H 194 H 143 H Fasting Glucose Calcium Discharge Plan Discharge Patient Disposition: Home Health Service Referrals: [facility] FOR HOME PHYSICAL THEARPY [Other] (DISCHARGED HOME WITH NEW REFERRAL TO [facility]FOR HOME PHYSICAL THE[facility]PY, PLEASE CALL THEM THE DAY AFTER IF YOU HAVE NOT HEARD FROM THEM BY 12 NOON PLEASE CALL YOUR PCP FOR POST HOSPITAL DISCHARGE FOLLOW UP) Coy Alfredo PA-C [Physician Braille Transcriber] - (Two weeks follow up with Orthopedics) Discharge Medications: New acetaminophen 325 mg Tablet 650 mg PO Q6H PRN (Reason: Pain, Mild (Pain Scale 1-3)) 30 Days Qty: 240 RF: 0 aspirin 325 mg Tablet 325 mg PO BID 14 Days Qty: 28 RF: 0 sennosides [Senna Lax] 8.6 mg Tablet 17.2 mg PO BEDTIME PRN (Reason: Constipation) 30 Days Qty: 30 RF: 0 oxycodone 5 mg Tablet 5 mg PO Q4H PRN (Reason: Pain, Moderate (Pain Scale 4-6) 7 Days Qty: 42 RF: 0 Continued multivitamin Tablet 1 tab PO DAILY RF: 0 metformin 500 mg Tablet 500 mg PO DAILY RF: 0 pravastatin 40 mg Tablet 40 mg PO DAILY RF: 0 losartan 25 mg Tablet 25 mg PO DAILY RF: 0 omeprazole 20 mg Capsule,Delayed Release(Dr/Ec) 20 mg PO BID RF: 0 hydrochlorothiazide 25 mg Tablet 25 mg PO DAILY RF: 0 levothyroxine 50 mcg Capsule 50 mcg PO DAILY RF: 0 levothyroxine 200 mcg Capsule 200 mcg PO DAILY RF: 0 Discontinued tramadol 50 mg Tablet 50 mg PO BID PRN (Reason: Pain) RF: 0 acetaminophen-codeine 300-30 mg tablet 1 tab PO BID PRN (Reason: Pain) RF: 0 Discharge Orders: Discharge Order (Routine); Ordered 01/02/20 Ordered By: Coy Alfredo Diet: regular diet Activity on Discharge: Use cane or walker Activity Restrictions/Additional Instructions: * Physical Therapy for ROM 0-120, quad strength, gait training . Use walker for ambulation * Limit stair climbing, No shower, No tub bath, No driving * Continue anticoagulant * Keep Aquacel dressing clean, dry and intact. * Follow up with orthopedics in 2 weeks Visit Report Forms: Patient Portal Discharge page Care Plan Goals: Restore funtion of right knee Health Concerns: None Plan of Treatment: Physical Therapy Pain management DVT prophylaxis
--- NOTE | 2020-01-02 10:13 | P.F2F_ITS ---
Service Date Service Date: 01/02/20 Reasons for Services overseeing care: Ilya Nichols MD Homebound: Leaving the home is medically contraindicated at this time without the asist of a device and/or another person due th the listed conditions above and below. Certification: Based on the above findings, I certify that this patient is confined to the home and needs intermittent intermediate care, physical therapy and/or speech therapy, or continues to need occupational therapy. The patient is under my care, and I have initiated the establishment of the plan of care. The patient will be followed by a physician who will periodically review the plan of care.
--- NOTE | 2020-01-02 11:33 | MHC.CM.PN ---
NURSE RETINAL SURGEON NOTE ELECTRONIC MEDEICAL RECORD REVIEWED ALONG WITH CASE DISCUSSED WITH STAFF NURSE AND MET WITH PATIENT , SHE IS AWARE THAT SH WILL BE DISCHARGED HOME TOFDAY , WITH VNA DISCHARGE PLAN HOME WITH [facility] FOR HOME PHYSICl theapry to start tomorrow (instructed the [facility]na to call patient first as she will need somene to open the downstairs entry jr ) pcp patient to call for post hospitlal discharge orthopedic surgery follow up per discharge instructions transp-family .
[2020-01-02 11:59] LABS: Glucose, Whole Blood 149 mg/dL (60-115)
[2020-01-02 12:00] VITALS: BP 126/70; PULSE 88; RESP 18; TEMP 36.3; O2SAT 97
== END 2020-01-02 13:08 | disposition home health service (06) | DRG 470 ==
LOC: HO.SSSA 05:49 → HO.S3 09:41
PROVIDERS: Physician Assistant; Admitting Provider Orthopaedic Surgery; Visit Provider Orthopaedic Surgery
PROC: 0SRC0JA Replacement of Right Knee Joint with Synthetic Substitute, Uncemented, Open Approach (ICD-10-PCS; CPT 27447; principal; 2019-12-31 07:30)
DX: M17.11 Unilateral primary osteoarthritis, right knee (principal); K21.9 Gastro-esophageal reflux disease without esophagitis; E78.5 Hyperlipidemia, unspecified; I10 Essential (primary) hypertension; E03.9 Hypothyroidism, unspecified; Z20.828 Contact with and (suspected) exposure to other viral communicable diseases; Z79.84 Long term (current) use of oral hypoglycemic drugs; Z79.890 Hormone replacement therapy; Z79.899 Other long term (current) drug therapy
CPT/HCPCS: 36415; 73560; 80048; 82947; 85014; 85018; 86850; 86900; 86901; 87635; 88305; 88311; 97110; 97116; 97162; C1776; J0690; J1170; J2250; J2405

== ENCOUNTER → 2020-01-16 12:01 | Outpatient (BNVA) | payer MEDICARE, SELFPAY | PROVIDERS: Visit Provider Physician Assistant | DX: Z47.1 Aftercare following joint replacement surgery (principal); Z96.651 Presence of right artificial knee joint | CPT/HCPCS: 99212 ==

== ENCOUNTER 2020-01-21 21:19 | Emergency (ER) | payer MEDICARE, SELFPAY ==
[2020-01-21 21:24] VITALS: BP 127/77; BP 142/97; PULSE 70; PULSE 76; RESP 18; TEMP 36.8; O2SAT 98; BMI 31.2
--- NOTE | 2020-01-21 22:32 | ED.ABDPAIN ---
HPI - Abdominal Pain General Chief Complaint: Abdominal Pain Stated Complaint: ABDOMINAL PAIN Time Seen by Provider: 01/21/20 22:29 Source: patient Mode of arrival: ambulatory Limitations: no limitations History of Present Illness HPI narrative: Patient with nose significant history of abdominal complaints in the past 2 hours prior to noticed cramping pain in left lower quadrant lasted for about 2 hours and gone just prior to arrival patient was dizzy with the pain and nauseated at this time patient denies any symptoms. No vomiting no diarrhea no fever patient is on prednisone for her knee MD elicited complaint: abdominal pain Pertinent past history: none Onset (ago): hour(s) (2) Pain Consistency: constant Location: LLQ Severity: moderate Quality: cramping Radiation: none Migration to: no migration Relieving factors: nothing Associated symptoms: nausea Related Data Home Medications Medication Instructions Recorded Confirmed hydrochlorothiazide 25 mg PO DAILY 12/17/19 12/17/19 levothyroxine 50 mcg PO DAILY 12/17/19 12/17/19 levothyroxine 200 mcg PO DAILY 12/17/19 12/17/19 losartan 25 mg PO DAILY 12/17/19 12/31/19 metformin 500 mg PO DAILY 12/17/19 12/17/19 multivitamin 1 tab PO DAILY 12/17/19 12/17/19 omeprazole 20 mg PO BID 12/17/19 12/17/19 pravastatin 40 mg PO DAILY 12/17/19 12/17/19 Previous Rx's Medication Instructions Recorded acetaminophen 650 mg PO Q6H PRN 30 Days #240 tab 01/02/20 aspirin 325 mg PO BID 14 Days #28 tab 01/02/20 sennosides [Senna Lax] 17.2 mg PO BEDTIME PRN 30 Days #30 01/02/20 tab celecoxib 200 mg capsule 200 mg PO BID 30 Days #60 cap 01/09/20 oxycodone 5 mg tablet 5 mg PO Q6H PRN 7 Days #28 tab 01/16/20 Allergies Allergy/AdvReac Type Severity Reaction Status Date / Time No Known Allergies Allergy Verified 12/26/19 12:46 [No Known Allergies*] Review of Systems Review of Systems REVIEW OF SYSTEMS: Pertinent positives and negatives are stated above in the history. GEN: no fevers, chills, fatigue HEENT: no nasal congestion, sore throat, ear pain NEURO: no headache, dizziness, focal weakness PULM: no cough, shortness of breath CV: no chest pain, palpitations, LE edema ABD: no vomiting, diarrhea : no dysuria, urgency, frequency SKIN: no rash ROS otherwise negative x 10 Physical Exam Vital Signs: Vital Signs: Last Vital Signs Temp 98.3 F 01/21/20 21:24 Pulse 76 01/21/20 21:24 Resp 18 01/21/20 21:24 BP 127/77 01/21/20 21:24 Pulse Ox 98 01/21/20 21:24 Body Mass Index 31.2 Appearance: Alert. Oriented X3. No acute distress. Eyes: Pupils equal, round and reactive to light. ENT: Pharynx normal. Neck: Normal inspection. Neck supple. CVS: Normal heart rate and rhythm. Pulses normal. Respiratory: No respiratory distress. Breath sounds normal. Abdomen: Soft and nontender. No mass palpable bowel sounds are normal no rebound tenderness no guarding Skin: Skin warm and dry. Normal skin color. Normal skin turgor. Extremities: No lower extremity edema. Good range of movement Neuro: Oriented X 3. No motor deficit. No sensory deficit. Course Course Course Narrative: Patient with nonspecific abdominal pain lasted for 2 hours gone now at this time labs are stable with slight leukocytosis patient is on prednisone for right knee pain. Patient advised to come back to the ER if pain recurs MDM - Abdominal Pain Differential Diagnosis Differential diagnosis: Likely abdominal pain, diverticulitis and gastroenteritis Medical Records Attestation: I reviewed the patient's medical records. Lab Data Attestation: I reviewed the patient's lab results. Result diagrams: 01/21/20 22:56 01/21/20 22:56 Labs: Lab Results 01/21/20 01/21/20 01/21/20 Range/Units 22:56 22:56 23:31 WBC 12.3 H (4.8-10.8) X10*3/uL RBC 3.95 L (4.20-5.50) X10*6/uL Hgb 11.2 L (12.0-16.0) g/dl Hct 35.8 L (37-47) % MCV 90.6 (80-98) fL MCH 28.4 (27.0-33.0) pg MCHC 31.3 (31.0-35.0) g/dl RDW 13.6 (11.0-16.0) % Plt Count 305 (160-400) X10*3/uL MPV 10.5 (9.4-12.3) fL Immature Gran % (Auto) 0.2 (0.0-0.4) % Neut % (Auto) 81.9 H (45-73) % Lymph % (Auto) 10.9 L (20-40) % [place] % (Auto) 5.3 (2-11) % Eos % (Auto) 1.1 (0-4) % Baso % (Auto) 0.6 (0-2) % Lymph # (Auto) 1.4 (1.2-4.9) X10*3/uL [place] # (Auto) 0.7 (0.1-1.2) X10*3/uL Eos # (Auto) 0.1 (0.0-0.4) X10*3/uL Baso # (Auto) 0.1 (0.0-0.2) X10*3/uL Abs Immat Gran (auto) 0.03 (0.00-0.03) X10*3/uL Absolute Neuts (auto) 10.1 H (2.0-8.3) X10*3/uL Absolute Nucleated RBC 0.000 (0.0-0.012) X10*3/uL Nucleated RBC % (auto) 0.0 (0.0-0.2) /100WBC Sodium 138 (135-145) mmol/L Potassium 4.2 (3.3-5.1) mmol/l Chloride 103 (96-108) mmol/L Carbon Dioxide 27 (22-29) mmol/L Anion Gap 12 (12-20) BUN 15 (9-16) mg/dL Creatinine 0.74 (0.5-1.4) mg/dL Estim Creat Clear Calc 62.0 Estimated GFR > 60 Random Glucose 178 H (60-115) mg/dL Calcium 9.7 D (8.4-10.2) mg/dL Total Bilirubin 0.3 (0.0-1.0) mg/dL Direct Bilirubin < 0.2 (0.0-0.5) mg/dL AST 16 (5-31) U/L ALT 9 (0-31) U/L Alkaline Phosphatase 92 (39-117) U/L Total Protein 7.2 (6.5-8.0) g/dL Albumin 4.0 (3.5-5.0) g/dL Lipase 46 (8-78) U/L Urine Color YELLOW Urine Appearance CLEAR Urine pH 6.0 (5.0-8.0) Ur Specific [place] 1.025 (1.005-1.025) Urine Protein NEG (NEG-TRACE) MG/DL Urine Glucose (UA) NEG (NEG) MG/DL Urine Ketones NEG (NEG) MG/DL Urine Blood 1+ H (NEG) Urine Nitrite NEG (NEG) Ur Leukocyte Esterase NEG (NEG) Urine RBC 5-9 H (0) /HPF Urine WBC 1-4 (0-4) /HPF Ur Squamous Epith Cells 1+ /LPF Urine Bacteria 1+ /LPF Discharge Plan Discharge Clinical Impression: Abdominal pain Patient Disposition: Home, Self-Care Instructions: Abdominal Pain (ED) Additional Instructions: Report to the ER if recurrence of the pain/vomiting/fever for further evaluation Prescriptions: No Action celecoxib [Celebrex] 200 mg capsule 200 mg PO BID 30 Days Qty: 60 RF: 0 multivitamin Tablet 1 tab PO DAILY RF: 0 metformin 500 mg Tablet 500 mg PO DAILY RF: 0 pravastatin 40 mg Tablet 40 mg PO DAILY RF: 0 losartan 25 mg Tablet 25 mg PO DAILY RF: 0 omeprazole 20 mg Capsule,Delayed Release(Dr/Ec) 20 mg PO BID RF: 0 hydrochlorothiazide 25 mg Tablet 25 mg PO DAILY RF: 0 levothyroxine 50 mcg Capsule 50 mcg PO DAILY RF: 0 levothyroxine 200 mcg Capsule 200 mcg PO DAILY RF: 0 acetaminophen 325 mg Tablet 650 mg PO Q6H PRN (Reason: Pain, Mild (Pain Scale 1-3)) 30 Days Qty: 240 RF: 0 aspirin 325 mg Tablet 325 mg PO BID 14 Days Qty: 28 RF: 0 sennosides [Senna Lax] 8.6 mg Tablet 17.2 mg PO BEDTIME PRN (Reason: Constipation) 30 Days Qty: 30 RF: 0 oxycodone 5 mg tablet 5 mg PO Q6H PRN (Reason: Pain, Moderate (Pain Scale 4-6) 7 Days Qty: 28 RF: 0 Interventions: ED Discharge Assessment Last Done: 01/22/20 00:17 Discharge Date/Time: 01/22/20 00:15 [facility] Past Medical History Medical History Arthritis Asthma Back pain Chronic cough Diabetes mellitus Elevated cholesterol GERD (gastroesophageal reflux disease) HTN (hypertension) Hypothyroid Insomnia Migraine Osteoarthritis of right knee Surgical History History of corneal transplant History of laparoscopic appendectomy Hx of colonoscopy Hx of dilation and curettage Hx of tubal ligation Status post cataract extraction and insertion of intraocular lens of left eye Social History Social History Alcohol intake: never Smoking Status: Never smoker Smoked in Last 30 Days: No Second Hand Smoke Exposure: No Use of substances other than those prescribed or required for medical reasons: No Advance Directives: No Advance Directives Information Provided: Yes service: No Current occupational status: unemployed
--- NOTE | 2020-01-21 22:59 | PC.NURSE ---
Pt reports symptoms of nausea and abd pain have since resolved. labs drawn, ambulated to bathroom with steady gait
[2020-01-21 23:01] LABS: Basophils Absolute Auto 0.1 X10*3/uL (0.0-0.2); Basophils Percent Auto 0.6 % (0-2); Eosinophils Absolute Auto 0.1 X10*3/uL (0.0-0.4); Eosinophils Percent Auto 1.1 % (0-4); Hematocrit 35.8 % (37-47); Hemoglobin 11.2 g/dl (12.0-16.0); Imm Gran Abs Auto 0.03 X10*3/uL (0.00-0.03); Imm Gran Pct Auto 0.2 % (0.0-0.4); Lymphocytes Absolute Auto 1.4 X10*3/uL (1.2-4.9); Lymphocytes Percent Auto 10.9 % (20-40); Mean Corpuscular HGB Conc 31.3 g/dl (31.0-35.0); Mean Corpuscular Hemoglobin 28.4 pg (27.0-33.0); Mean Corpuscular Volume 90.6 fL (80-98); Mean Platelet Volume 10.5 fL (9.4-12.3); Monocytes Absolute Auto 0.7 X10*3/uL (0.1-1.2); Monocytes Percent Auto 5.3 % (2-11); Neutrophils Absolute Auto 10.1 X10*3/uL (2.0-8.3); Neutrophils Percent Auto 81.9 % (45-73); Platelet Count 305 X10*3/uL (160-400); Red Blood Count 3.95 X10*6/uL (4.20-5.50); Red Cell Distribution Width 13.6 % (11.0-16.0); White Blood Count 12.3 X10*3/uL (4.8-10.8)
[2020-01-21 23:03] LABS: MANUAL DIFF FLAG NO
[2020-01-21 23:27] LABS: Alanine Aminotransferase 9 U/L (0-31); Alkaline Phosphatase 92 U/L (39-117); Anion Gap 12 (12-20); Aspartate Amino Transferase 16 U/L (5-31); Bilirubin Direct < 0.2 mg/dL (0.0-0.5); Bilirubin Total 0.3 mg/dL (0.0-1.0); Blood Urea Nitrogen 15 mg/dL (9-16); Calcium 9.7 mg/dL (8.4-10.2); Carbon Dioxide 27 mmol/L (22-29); Chloride 103 mmol/L (96-108); Estimated Glomerular Filt Rate > 60; Glucose Random 178 mg/dL (60-115); Lipase 46 U/L (8-78); Potassium 4.2 mmol/l (3.3-5.1); Sodium 138 mmol/L (135-145); Total Protein 7.2 g/dL (6.5-8.0)
[2020-01-21 23:42] LABS: Glucose Urine UA NEG (NEG); Leukocyte Esterase Urine NEG (NEG); Nitrite Urine NEG (NEG); Specific Gravity - Urine 1.025 (1.005-1.025); Urine Blood 1+ (NEG); Urine Ketones NEG (NEG); Urine Protein NEG (NEG-TRACE)
[2020-01-21 23:43] LABS: Appearance Urine CLEAR; Color Urine YELLOW
[2020-01-21 23:46] LABS: Bacteria Urine 1+ /LPF; Squamous Epithelial Cell Urine 1+ /LPF
== END 2020-01-22 00:15 | disposition home or self-care (01) ==
PROVIDERS: Emergency Provider Internal Medicine; PCP Internal Medicine
DX: R10.32 Left lower quadrant pain (principal); Z79.899 Other long term (current) drug therapy
CPT/HCPCS: 36415; 80048; 80076; 81001; 83690; 85025; 99283; 99284

== ENCOUNTER → 2020-02-19 13:23 | Outpatient (BNVA) | payer MEDICARE, SELFPAY | PROVIDERS: PCP Internal Medicine; Visit Provider Physician Assistant | DX: Z47.1 Aftercare following joint replacement surgery (principal); Z96.651 Presence of right artificial knee joint | CPT/HCPCS: 99212 ==

== ENCOUNTER 2020-02-24 11:00 | Outpatient (RCR) | payer MEDICARE, SELFPAY ==
--- NOTE | 2020-01-27 10:55 | MHC.PT.EP ---
[facility] [place] [facility] [place] Office [place] Office [address] Serena Ojeda [address] [phone] F: [phone] F: [phone] F: [phone] F: [phone] Physical Therapy Plan of Care Date of Evaluation: 01/24/20 Date of Surgery: 12/31/2019 Diagnosis: R TKA Assessment: pt presents to physical therapy with pain, decreased range of motion, decreased strength, impaired functional mobility, impaired postural awareness, and gait deviations. pt is a good candidate for skilled PT due to age, potential remediation of impairments, typical disease/condition progression and prognosis, comorbidities, and motivation. pt would benefit from tailored strengthening and stretching exercise program, functional training, gait training, postural re-training, neuromuscular re-education, modalities as needed for pain, and equipment safety demonstration. Frequency and Duration: The patient will be seen 2x/wk for 6 wks Short Term Goals: pt will be I w/ HEP to promote self-management of condition. pt will improve R knee extension to 0 deg to normalize gait pattern on even ground. pt will participate in 6MWT to determine current baseline ambulation impairment. Penitentiary Goals: pt will report <1/10 R knee pain w/ ADLs to facilitate return to PLOF. pt will report statistically significant improvement in self-reported outcome measure, LEFI, to promote return to PLOF. Treatment Plan: Modalities to reduce pain, spasms and effusion. Manual therapy to restore motion and function. Therapeutic exercise to improve strength and flexibility. Neuromuscular re-education for posture and balance. Therapeutic activities to return to functional activities of daily living. Please sign and return to therapist. Thank you for your referral.
--- NOTE | 2020-03-24 11:28 | MHC.PT.DC ---
[facility] [place] Office [place] Office [place] Office [address] Serena Ojeda 140 [facility] [phone] F: [phone] F: [phone] F: [phone] F: [phone] Physical Therapy Discharge Report Diagnosis: R TKA Date of Surgery: 12/31/2019 Date of Evaluation: 01/24/20 Date of Discharge: 03/24/20 Treatments to Date: 7 Cancellations to Date: 5 No Shows to Date: 4 Discharge Status: Visit Non-compliance Discharge Summary: The patient has missed a total of 9 appointments over the last four weeks. She originally called to cancel as she was having difficulty with transportation; however, despite attempts to call her she has not responded or attended any further visits. She was having poor tolerance of physical therapy and would often report she has a poor pain tolerance. She was frequently educated regarding the importance of pushing her range of motion to improve the function of her operative leg. Due to poor attendance she is discharged from this physical therapy plan of care at this time. Electronically signed by: Valerie Enriquez PT, DPT Please sign and return to therapist. Thank you for your referral.
== END 2020-03-24 11:29 | disposition other institution (70) ==
LOC: HO.PT 11:00
PROVIDERS: Visit Provider Physician Assistant
DX: M17.11 Unilateral primary osteoarthritis, right knee (principal)
CPT/HCPCS: 97014; 97110; 97140; 97162

== ENCOUNTER → 2020-03-19 11:16 | Outpatient (BNVA) | payer MEDICARE, SELFPAY | PROVIDERS: PCP Internal Medicine; Visit Provider Orthopaedic Surgery | DX: Z47.1 Aftercare following joint replacement surgery (principal); Z96.651 Presence of right artificial knee joint | CPT/HCPCS: 99212 ==

== ENCOUNTER → 2021-12-08 11:28 | Outpatient (BNVA) | payer MEDICARE, SELFPAY | PROVIDERS: PCP Internal Medicine; Visit Provider Student in an Organized Health Care Education/Training Program | DX: M25.562 Pain in left knee (principal); G89.29 Other chronic pain; R63.4 Abnormal weight loss | CPT/HCPCS: 99202 ==

== ENCOUNTER 2021-12-23 10:10 | Outpatient (REF) | payer MEDICARE, SELFPAY ==
--- NOTE | ~2021-12-23 | XR_ITS ---
EXAMINATION: BILATERAL KNEE X-RAY CLINICAL INFORMATION: Rheumatoid arthritis COMPARISON: Previous knee x-rays from 2019 TECHNIQUE: 4 views of both knees FINDINGS: Right: There is a 3 component right knee replacement in satisfactory position. No fracture, dislocation or x-ray evidence of loosening. No joint effusion. Left: Bone alignment is normal. There is arthritis at the medial femoral tibial joint with joint space narrowing and osteophyte formation. Osteopenia. There is arthritis at the patellofemoral joint with osteophyte formation. No erosions are seen. There is no joint effusion. XR/XR knee RT 3V IMPRESSION: Right knee: Satisfactory position of right knee replacement. Left knee: Osteopenia. Arthritis at the medial femoral tibial and patellofemoral joints.
--- NOTE | ~2021-12-23 | XR_ITS ---
EXAMINATION: BILATERAL KNEE X-RAY CLINICAL INFORMATION: Rheumatoid arthritis COMPARISON: Previous knee x-rays from 2019 TECHNIQUE: 4 views of both knees FINDINGS: Right: There is a 3 component right knee replacement in satisfactory position. No fracture, dislocation or x-ray evidence of loosening. No joint effusion. Left: Bone alignment is normal. There is arthritis at the medial femoral tibial joint with joint space narrowing and osteophyte formation. Osteopenia. There is arthritis at the patellofemoral joint with osteophyte formation. No erosions are seen. There is no joint effusion. XR/XR knee standing BI IMPRESSION: Right knee: Satisfactory position of right knee replacement. Left knee: Osteopenia. Arthritis at the medial femoral tibial and patellofemoral joints.
--- NOTE | ~2021-12-23 | XR_ITS ---
EXAMINATION: XR HAND AND WRIST, RIGHT XR HAND AND WRIST, LEFT CLINICAL INFORMATION: Rheumatoid arthritis. COMPARISON: None TECHNIQUE: Four views of the hands and wrists. FINDINGS: RIGHT HAND AND WRIST: There may be periarticular osteopenia. Bone alignment is normal. No fracture or dislocation is seen. There is osteoarthritis at the IP joints with joint space narrowing and osteophyte formation, greatest at the DIP joint of the 2nd finger. Joint spaces are normal. No erosions are seen. Soft tissues are normal. LEFT HAND AND WRIST: Bone alignment is normal. There may be periarticular osteopenia. There is arthritis at the DIP joint of the 2nd finger with osteophyte formation and joint space narrowing. No erosions are seen. Soft tissues are normal. XR/XR hand wrist RT IMPRESSION: Mild periarticular osteopenia. Osteoarthritis at the IP joints.
--- NOTE | ~2021-12-23 | XR_ITS ---
EXAMINATION: BILATERAL FOOT AND ANKLE X-RAY CLINICAL INFORMATION: Rheumatoid arthritis COMPARISON: None TECHNIQUE: 3 views of each foot and ankle FINDINGS: Left foot: Bone alignment is normal. No fracture or dislocation. Normal joint spaces. Small calcaneal spurs. Left ankle: Bone alignment is normal. No fracture or dislocation. Normal ankle mortise. Normal soft tissues. Right foot: Bone alignment is normal. No fracture or dislocation. Normal joint spaces. Plantar calcaneal spur. Right ankle: Bone alignment is normal. No fracture or dislocation. Normal ankle mortise. Normal soft tissues. XR/XR ankle RT 2V IMPRESSION: Bilateral calcaneal spurs otherwise unremarkable exam.
--- NOTE | ~2021-12-23 | XR_ITS ---
EXAMINATION: BILATERAL FOOT AND ANKLE X-RAY CLINICAL INFORMATION: Rheumatoid arthritis COMPARISON: None TECHNIQUE: 3 views of each foot and ankle FINDINGS: Left foot: Bone alignment is normal. No fracture or dislocation. Normal joint spaces. Small calcaneal spurs. Left ankle: Bone alignment is normal. No fracture or dislocation. Normal ankle mortise. Normal soft tissues. Right foot: Bone alignment is normal. No fracture or dislocation. Normal joint spaces. Plantar calcaneal spur. Right ankle: Bone alignment is normal. No fracture or dislocation. Normal ankle mortise. Normal soft tissues. XR/XR foot RT min 3V IMPRESSION: Bilateral calcaneal spurs otherwise unremarkable exam.
--- NOTE | ~2021-12-23 | XR_ITS ---
EXAMINATION: XR HAND AND WRIST, RIGHT XR HAND AND WRIST, LEFT CLINICAL INFORMATION: Rheumatoid arthritis. COMPARISON: None TECHNIQUE: Four views of the hands and wrists. FINDINGS: RIGHT HAND AND WRIST: There may be periarticular osteopenia. Bone alignment is normal. No fracture or dislocation is seen. There is osteoarthritis at the IP joints with joint space narrowing and osteophyte formation, greatest at the DIP joint of the 2nd finger. Joint spaces are normal. No erosions are seen. Soft tissues are normal. LEFT HAND AND WRIST: Bone alignment is normal. There may be periarticular osteopenia. There is arthritis at the DIP joint of the 2nd finger with osteophyte formation and joint space narrowing. No erosions are seen. Soft tissues are normal. XR/XR hand wrist LT IMPRESSION: Mild periarticular osteopenia. Osteoarthritis at the IP joints.
--- NOTE | ~2021-12-23 | XR_ITS ---
EXAMINATION: BILATERAL FOOT AND ANKLE X-RAY CLINICAL INFORMATION: Rheumatoid arthritis COMPARISON: None TECHNIQUE: 3 views of each foot and ankle FINDINGS: Left foot: Bone alignment is normal. No fracture or dislocation. Normal joint spaces. Small calcaneal spurs. Left ankle: Bone alignment is normal. No fracture or dislocation. Normal ankle mortise. Normal soft tissues. Right foot: Bone alignment is normal. No fracture or dislocation. Normal joint spaces. Plantar calcaneal spur. Right ankle: Bone alignment is normal. No fracture or dislocation. Normal ankle mortise. Normal soft tissues. XR/XR foot LT min 3V IMPRESSION: Bilateral calcaneal spurs otherwise unremarkable exam.
--- NOTE | ~2021-12-23 | XR_ITS ---
EXAMINATION: BILATERAL KNEE X-RAY CLINICAL INFORMATION: Rheumatoid arthritis COMPARISON: Previous knee x-rays from 2019 TECHNIQUE: 4 views of both knees FINDINGS: Right: There is a 3 component right knee replacement in satisfactory position. No fracture, dislocation or x-ray evidence of loosening. No joint effusion. Left: Bone alignment is normal. There is arthritis at the medial femoral tibial joint with joint space narrowing and osteophyte formation. Osteopenia. There is arthritis at the patellofemoral joint with osteophyte formation. No erosions are seen. There is no joint effusion. XR/XR knee LT 3V IMPRESSION: Right knee: Satisfactory position of right knee replacement. Left knee: Osteopenia. Arthritis at the medial femoral tibial and patellofemoral joints.
--- NOTE | ~2021-12-23 | XR_ITS ---
EXAMINATION: BILATERAL FOOT AND ANKLE X-RAY CLINICAL INFORMATION: Rheumatoid arthritis COMPARISON: None TECHNIQUE: 3 views of each foot and ankle FINDINGS: Left foot: Bone alignment is normal. No fracture or dislocation. Normal joint spaces. Small calcaneal spurs. Left ankle: Bone alignment is normal. No fracture or dislocation. Normal ankle mortise. Normal soft tissues. Right foot: Bone alignment is normal. No fracture or dislocation. Normal joint spaces. Plantar calcaneal spur. Right ankle: Bone alignment is normal. No fracture or dislocation. Normal ankle mortise. Normal soft tissues. XR/XR ankle LT 2V IMPRESSION: Bilateral calcaneal spurs otherwise unremarkable exam.
[2021-12-23 12:22] LABS: Basophils Absolute Auto 0.1 X10*3/uL (0.0-0.2); Basophils Percent Auto 0.6 % (0-2); Eosinophils Absolute Auto 0.2 X10*3/uL (0.0-0.4); Eosinophils Percent Auto 1.3 % (0-4); Hematocrit 43.9 % (37.0-47.0); Hemoglobin 13.7 g/dl (12.0-16.0); Imm Gran Abs Auto 0.03 X10*3/uL (0.00-0.03); Imm Gran Pct Auto 0.3 % (0.0-0.4); Lymphocytes Absolute Auto 3.8 X10*3/uL (1.2-4.9); Lymphocytes Percent Auto 32.4 % (20-40); MANUAL DIFF FLAG SCAN; Mean Corpuscular HGB Conc 31.2 g/dl (31.0-35.0); Mean Corpuscular Hemoglobin 27.7 pg (27.0-33.0); Mean Corpuscular Volume 88.7 fL (80.0-98.0); Monocytes Absolute Auto 0.9 X10*3/uL (0.1-1.2); Neutrophils Absolute Auto 6.7 x10*3/uL (2.0-8.3); Neutrophils Percent Auto 57.4 % (45-73); PLT CLUMP 1; Red Blood Count 4.95 X10*6/uL (4.20-5.50); Red Cell Distribution Width 12.7 % (11.0-16.0); SCAN SMEAR FLAG 1
[2021-12-23 12:25] LABS: Appearance Urine Clear; Color Urine Yellow; Glucose Urine UA Negative (Negative); Leukocyte Esterase Urine Moderate (2+) (Negative); Nitrite Urine Negative (Negative); PH 5.5 (5.0-9.0); Specific Gravity - Urine >= 1.030 (1.005-1.025); UMIC TRIGGER UA YES; Urine Blood Negative (Negative); Urine Ketones Trace mg/dL (Negative); Urine Protein Negative (Neg-Trace)
[2021-12-23 12:26] LABS: Creatinine Urine 155.14 mg/dL; Protein/Creatinine Ratio, Ur 0.09 (<0.2); Total Protein Urine Random 14 mg/dL (<12)
[2021-12-23 12:38] LABS: Alanine Aminotransferase 11 U/L (0-31); Albumin Level 4.4 g/dL (3.5-5.0); Alkaline Phosphatase 79 U/L (39-117); Anion Gap 17 (12-20); Aspartate Amino Transferase 13 U/L (5-31); Bilirubin Total 0.4 mg/dL (0.0-1.0); Blood Urea Nitrogen 18 mg/dL (9-16); C Reactive Protein 0.05 mg/dL (< or = 0.50); Calcium 10.4 mg/dL (8.4-10.2); Carbon Dioxide 25 mmol/L (22-29); Chloride 102 mmol/L (96-108); Estimated Glomerular Filt Rate > 60; Glucose Random 130 mg/dL (60-115); Rheumatoid Factor < 15.0 IU/mL (<15.0); Sodium 140 mmol/L (135-145); Total Protein 7.7 g/dL (6.5-8.0); Uric Acid 3.7 mg/dL (2.4-5.7)
[2021-12-23 13:02] LABS: SLIDE REVIEW VERIFIED; White Blood Count 11.9 X10*3/uL (4.8-10.8)
[2021-12-23 13:05] LABS: Erythrocyte Sedimentation Rate 8 MM/HR (0-20)
[2021-12-23 13:08] LABS: Bacteria Urine None Seen (None Seen); Calcium Oxalate Crystals Urine Present; Hyaline Casts Urine 0-2 /LPF (0-2)
[2021-12-24 07:42] LABS: HBS Num1 0.71 mIU/mL (0-7.99); HBc Num1 0.15 S/CO (0.00-0.79); Hepatitis A Antibody IgM 0.52 Index (0-0.79); Hepatitis B Core Antibody Nonreactive (Nonreactive); Hepatitis B Surface Antigen Negative (Negative); ~HepC Num1 0.19 S/CO (0.00-0.79); ~Hepatitis A Antibody IgM Nonreactive (Nonreactive); ~Hepatitis B Surface Antibody NONREACTIVE (Nonreactive); ~Hepatitis C Antibody Nonreactive (Nonreactive)
[2021-12-24 11:36] LABS: Complement C3 126 mg/dL (83-193)
[2021-12-25 05:46] LABS: Lyme Abs Screen <0.90 index
[2021-12-25 06:12] LABS: Thyroid Peroxidase Antibodies 46 IU/mL (<9)
[2021-12-25 13:22] LABS: TS Negative Control Passed; TS Panel A 4; TS Panel B 4; TS Positive Control Passed; TSpotTB Negative (Negative)
[2021-12-27 13:03] LABS: Thyroglobulin Antibodies >1000 IU/mL (< or = 1)
[2021-12-27 14:23] LABS: Cardiolipin IgG Ab <2.0 GPL-U/mL; Cardiolipin IgM Ab <2.0 MPL-U/mL
[2021-12-27 14:27] LABS: PES - Abn Protein Band 1 0.2 g/dL (NONE DETECTED); Prot Elec - Albumin 4.3 g/dL (3.8-4.8); Prot Elec - Alpha1 0.2 g/dL (0.2-0.3); Prot Elec - Alpha2 0.9 g/dL (0.5-0.9); Prot Elec - Beta 1 0.5 g/dL (0.4-0.6); Prot Elec - Beta 2 0.4 g/dL (0.2-0.5); Prot Elec - Gamma 1.3 g/dL (0.8-1.7); Prot Elec - Total Protein 7.5 g/dL (6.1-8.1)
[2021-12-27 15:21] LABS: Anti DNA DS Antibody <1 IU/mL; Antibody to SS-A Antigen <1.0 NEG AI (<1.0 NEG); Antibody to SS-B Antigen <1.0 NEG AI (<1.0 NEG); SM/Ribonucleoprotein Ab <1.0 NEG AI (<1.0 NEG); Smith Protein <1.0 NEG AI (<1.0 NEG)
[2021-12-27 16:48] LABS: IgA 351 mg/dL (70-320); IgG 1540 mg/dL (600-1540); IgM 77 mg/dL (50-300)
[2021-12-27 17:32] LABS: Cyclic Citrullinated Peptide <16 UNITS
[2021-12-28 14:36] LABS: Anti Nuclear Antibody Pattern Nuclear, Homogeneous; Anti Nuclear Antibody Screen POSITIVE (NEGATIVE); Anti Nuclear Antibody Titer 1:40 titer
[2021-12-29 13:16] LABS: Beta-2 Glycoprotein IgA <2.0 U/mL (<20.0); Beta-2 Glycoprotein IgG <2.0 U/mL (<20.0); Beta-2 Glycoprotein IgM <2.0 U/mL (<20.0)
[2021-12-29 13:46] LABS: PTT (LAC) Screen 33 sec (<=40)
== END 2021-12-23 10:11 | disposition home or self-care (01) ==
LOC: HO.LAB 10:10
PROVIDERS: PCP Internal Medicine; Visit Provider Student in an Organized Health Care Education/Training Program
DX: M06.9 Rheumatoid arthritis, unspecified (principal); M25.541 Pain in joints of right hand; R63.4 Abnormal weight loss; E03.9 Hypothyroidism, unspecified; Z11.7 Encounter for testing for latent tuberculosis infection; Z11.59 Encounter for screening for other viral diseases
CPT/HCPCS: 36415; 73110; 73130; 73562; 73564; 73565; 73600; 73630; 80053; 81001; 82784; 84156; 84165; 84443; 84550; 85025; 85597; 85613; 85652; 85730; 86038; 86039; 86140; 86146; 86147; 86160; 86200; 86225; 86235; 86334; 86376; 86431; 86481; 86617; 86618; 86704; 86706; 86709; 86800; 86803; 87340

== ENCOUNTER → 2021-12-29 09:29 | Outpatient (BNVA) | payer MEDICARE, SELFPAY | PROVIDERS: PCP Internal Medicine; Visit Provider Student in an Organized Health Care Education/Training Program | DX: M06.09 Rheumatoid arthritis without rheumatoid factor, multiple sites (principal); R79.89 Other specified abnormal findings of blood chemistry; Z79.631 Long term (current) use of antimetabolite agent | CPT/HCPCS: 99212 ==

== ENCOUNTER 2022-02-03 10:55 | Outpatient (REF) | payer MEDICARE, SELFPAY ==
[2022-02-03 11:23] LABS: MANUAL DIFF FLAG NO
[2022-02-03 11:47] LABS: Basophils Absolute Auto 0.1 X10*3/uL (0.0-0.2); Eosinophils Absolute Auto 0.1 X10*3/uL (0.0-0.4); Eosinophils Percent Auto 1.7 % (0-4); Hematocrit 43.4 % (37.0-47.0); Hemoglobin 13.8 g/dl (12.0-16.0); Imm Gran Abs Auto 0.01 X10*3/uL (0.00-0.03); Imm Gran Pct Auto 0.1 % (0.0-0.4); Lymphocytes Absolute Auto 2.9 X10*3/uL (1.2-4.9); Lymphocytes Percent Auto 34.3 % (20-40); Mean Corpuscular HGB Conc 31.8 g/dl (31.0-35.0); Mean Platelet Volume 12.4 fL (9.4-12.3); Monocytes Absolute Auto 0.8 X10*3/uL (0.1-1.2); Monocytes Percent Auto 9.7 % (2-11); Neutrophils Absolute Auto 4.4 x10*3/uL (2.0-8.3); Neutrophils Percent Auto 53.2 % (45-73); Platelet Count 184 X10*3/uL (160-400); Red Blood Count 4.93 X10*6/uL (4.20-5.50); Red Cell Distribution Width 13.2 % (11.0-16.0); White Blood Count 8.3 X10*3/uL (4.8-10.8)
[2022-02-03 12:23] LABS: Alanine Aminotransferase 40 U/L (0-31); Albumin Level 4.4 g/dL (3.5-5.0); Alkaline Phosphatase 74 U/L (39-117); Anion Gap 10 (12-20); Aspartate Amino Transferase 38 U/L (5-31); Bilirubin Total 0.4 mg/dL (0.0-1.0); Blood Urea Nitrogen 13 mg/dL (9-16); C Reactive Protein < 0.10 mg/dL (< or = 0.50); Calcium 10.4 mg/dL (8.4-10.2); Carbon Dioxide 27 mmol/L (22-29); Chloride 102 mmol/L (96-108); Estimated Glomerular Filt Rate > 60; Glucose Random 135 mg/dL (60-115); Potassium 3.9 mmol/L (3.3-5.1); Sodium 135 mmol/L (135-145); Total Protein 7.6 g/dL (6.5-8.0)
[2022-02-03 12:30] LABS: Erythrocyte Sedimentation Rate 7 MM/HR (0-20)
== END 2022-02-03 10:56 | disposition home or self-care (01) ==
LOC: HO.LAB 10:55
PROVIDERS: PCP Internal Medicine; Visit Provider Student in an Organized Health Care Education/Training Program
DX: M06.9 Rheumatoid arthritis, unspecified (principal)
CPT/HCPCS: 80053; 85025; 85652; 86140

== ENCOUNTER 2022-02-09 10:03 | Outpatient (REF) | payer MEDICARE, SELFPAY ==
[2022-02-09 11:25] LABS: MANUAL DIFF FLAG NO
[2022-02-09 12:18] LABS: Basophils Absolute Auto 0.1 X10*3/uL (0.0-0.2); Basophils Percent Auto 0.9 % (0-2); Eosinophils Absolute Auto 0.2 X10*3/uL (0.0-0.4); Eosinophils Percent Auto 2.2 % (0-4); Hematocrit 42.7 % (37.0-47.0); Hemoglobin 13.3 g/dl (12.0-16.0); Imm Gran Abs Auto 0.01 X10*3/uL (0.00-0.03); Imm Gran Pct Auto 0.1 % (0.0-0.4); Lymphocytes Absolute Auto 2.4 X10*3/uL (1.2-4.9); Lymphocytes Percent Auto 31.7 % (20-40); Mean Corpuscular HGB Conc 31.1 g/dl (31.0-35.0); Mean Corpuscular Hemoglobin 27.5 pg (27.0-33.0); Mean Corpuscular Volume 88.4 fL (80.0-98.0); Mean Platelet Volume 12.4 fL (9.4-12.3); Monocytes Absolute Auto 0.7 X10*3/uL (0.1-1.2); Monocytes Percent Auto 9.6 % (2-11); Neutrophils Absolute Auto 4.2 x10*3/uL (2.0-8.3); Neutrophils Percent Auto 55.5 % (45-73); Platelet Count 183 X10*3/uL (160-400); Red Blood Count 4.83 X10*6/uL (4.20-5.50); Red Cell Distribution Width 13.5 % (11.0-16.0); White Blood Count 7.6 X10*3/uL (4.8-10.8)
[2022-02-09 13:22] LABS: Alanine Aminotransferase 18 U/L (0-31); Albumin Level 4.4 g/dL (3.5-5.0); Alkaline Phosphatase 69 U/L (39-117); Anion Gap 10 (12-20); Aspartate Amino Transferase 16 U/L (5-31); Bilirubin Total 0.4 mg/dL (0.0-1.0); Blood Urea Nitrogen 13 mg/dL (9-16); C Reactive Protein < 0.10 mg/dL (< or = 0.50); Calcium 10.5 mg/dL (8.4-10.2); Carbon Dioxide 32 mmol/L (22-29); Chloride 103 mmol/L (96-108); Estimated Glomerular Filt Rate > 60; Glucose Random 83 mg/dL (60-115); Potassium 4.5 mmol/L (3.3-5.1); Sodium 140 mmol/L (135-145); Total Protein 7.5 g/dL (6.5-8.0)
[2022-02-09 14:22] LABS: Erythrocyte Sedimentation Rate 9 MM/HR (0-20)
== END 2022-02-09 10:04 | disposition home or self-care (01) ==
LOC: HO.LAB 10:03
PROVIDERS: PCP Internal Medicine; Visit Provider Student in an Organized Health Care Education/Training Program
DX: M06.09 Rheumatoid arthritis without rheumatoid factor, multiple sites (principal); M17.0 Bilateral primary osteoarthritis of knee; Z79.631 Long term (current) use of antimetabolite agent; Z79.899 Other long term (current) drug therapy
CPT/HCPCS: 36415; 80053; 85025; 85652; 86140; 99212

== ENCOUNTER 2022-05-09 10:39 | Outpatient (REF) | payer MEDICARE, SELFPAY ==
[2022-05-09 12:05] LABS: Basophils Absolute Auto 0.1 X10*3/uL (0.0-0.2); Basophils Percent Auto 0.8 % (0-2); Eosinophils Absolute Auto 0.1 X10*3/uL (0.0-0.4); Eosinophils Percent Auto 1.9 % (0-4); Hematocrit 41.5 % (37.0-47.0); Hemoglobin 13.2 g/dl (12.0-16.0); Imm Gran Abs Auto 0.01 X10*3/uL (0.00-0.03); Imm Gran Pct Auto 0.1 % (0.0-0.4); Lymphocytes Absolute Auto 2.5 X10*3/uL (1.2-4.9); Lymphocytes Percent Auto 33.8 % (20-40); Mean Corpuscular HGB Conc 31.8 g/dl (31.0-35.0); Mean Corpuscular Hemoglobin 28.8 pg (27.0-33.0); Mean Corpuscular Volume 90.6 fL (80.0-98.0); Monocytes Absolute Auto 0.6 X10*3/uL (0.1-1.2); Monocytes Percent Auto 8.6 % (2-11); Neutrophils Absolute Auto 4.1 x10*3/uL (2.0-8.3); Neutrophils Percent Auto 54.8 % (45-73); Red Blood Count 4.58 X10*6/uL (4.20-5.50); Red Cell Distribution Width 13.6 % (11.0-16.0)
[2022-05-09 12:06] LABS: MANUAL DIFF FLAG SCAN; PLT CLUMP 1; SCAN SMEAR FLAG 1; White Blood Count 7.5 X10*3/uL (4.8-10.8)
[2022-05-09 12:44] LABS: Alanine Aminotransferase 12 U/L (0-31); Albumin Level 4.4 g/dL (3.5-5.0); Alkaline Phosphatase 72 U/L (39-117); Anion Gap 13 (12-20); Aspartate Amino Transferase 17 U/L (5-31); Bilirubin Total 0.5 mg/dL (0.0-1.0); Blood Urea Nitrogen 14 mg/dL (9-16); C Reactive Protein < 0.10 mg/dL (< or = 0.50); Calcium 10.4 mg/dL (8.4-10.2); Carbon Dioxide 28 mmol/L (22-29); Chloride 102 mmol/L (96-108); Estimated Glomerular Filt Rate > 60; Glucose Random 121 mg/dL (60-115); Potassium 4.4 mmol/L (3.3-5.1); Sodium 139 mmol/L (135-145); Total Protein 7.4 g/dL (6.5-8.0)
[2022-05-09 13:02] LABS: Erythrocyte Sedimentation Rate 8 MM/HR (0-20)
[2022-05-09 13:10] LABS: Mean Platelet Volume 13.3 fL (9.4-12.3); Platelet Count 203 X10*3/uL (160-400)
[2022-05-09 13:11] LABS: SLIDE REVIEW VERIFIED
== END 2022-05-09 10:40 | disposition home or self-care (01) ==
LOC: HO.LAB 10:39
PROVIDERS: PCP Internal Medicine; Visit Provider Student in an Organized Health Care Education/Training Program
DX: Z79.899 Other long term (current) drug therapy (principal)
CPT/HCPCS: 36415; 80053; 85025; 85652; 86140

== ENCOUNTER → 2022-07-22 13:30 | Outpatient (BNVA) | payer MEDICARE, SELFPAY | PROVIDERS: PCP Internal Medicine; Visit Provider Student in an Organized Health Care Education/Training Program | DX: M06.09 Rheumatoid arthritis without rheumatoid factor, multiple sites (principal) | CPT/HCPCS: 99212 ==

== ENCOUNTER 2022-10-12 11:04 | Outpatient (REF) | payer MEDICARE, SELFPAY ==
[2022-10-12 11:20] LABS: MANUAL DIFF FLAG NO
[2022-10-12 11:53] LABS: Basophils Absolute Auto 0.1 X10*3/uL (0.0-0.2); Basophils Percent Auto 0.6 % (0-2); Eosinophils Absolute Auto 0.2 X10*3/uL (0.0-0.4); Hematocrit 41.7 % (37.0-47.0); Imm Gran Abs Auto 0.02 X10*3/uL (0.00-0.03); Imm Gran Pct Auto 0.2 % (0.0-0.4); Lymphocytes Absolute Auto 3.1 X10*3/uL (1.2-4.9); Mean Corpuscular HGB Conc 31.2 g/dl (31.0-35.0); Mean Corpuscular Hemoglobin 27.8 pg (27.0-33.0); Mean Corpuscular Volume 89.1 fL (80.0-98.0); Mean Platelet Volume 12.9 fL (9.4-12.3); Monocytes Absolute Auto 0.8 X10*3/uL (0.1-1.2); Monocytes Percent Auto 9.1 % (2-11); Neutrophils Absolute Auto 4.4 x10*3/uL (2.0-8.3); Neutrophils Percent Auto 52.1 % (45-73); Platelet Count 173 X10*3/uL (160-400); Red Blood Count 4.68 X10*6/uL (4.20-5.50); Red Cell Distribution Width 12.8 % (11.0-16.0); White Blood Count 8.5 X10*3/uL (4.8-10.8)
[2022-10-12 12:27] LABS: Erythrocyte Sedimentation Rate 7 MM/HR (0-20)
[2022-10-12 12:30] LABS: Alanine Aminotransferase 11 U/L (0-31); Albumin Level 4.1 g/dL (3.5-5.0); Alkaline Phosphatase 77 U/L (39-117); Anion Gap 11 (12-20); Aspartate Amino Transferase 17 U/L (5-31); Bilirubin Total 0.2 mg/dL (0.0-1.0); Blood Urea Nitrogen 14 mg/dL (9-16); C Reactive Protein < 0.10 mg/dL (< or = 0.50); Calcium 10.4 mg/dL (8.4-10.2); Carbon Dioxide 29 mmol/L (22-29); Chloride 103 mmol/L (96-108); Estimated Glomerular Filt Rate > 60; Glucose Random 124 mg/dL (60-115); Potassium 4.2 mmol/L (3.3-5.1); Sodium 139 mmol/L (135-145); Total Protein 7.9 g/dL (6.5-8.0)
== END 2022-10-12 11:05 | disposition home or self-care (01) ==
LOC: HO.LAB 11:04
PROVIDERS: PCP Internal Medicine; Visit Provider Student in an Organized Health Care Education/Training Program
DX: Z79.899 Other long term (current) drug therapy (principal)
CPT/HCPCS: 36415; 80053; 85025; 85652; 86140

== ENCOUNTER 2022-10-14 14:42 | Outpatient (AMB) | payer MEDICARE, SELFPAY ==
--- NOTE | 2022-10-14 14:45 | MHC.OFFVIS ---
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 Required: No Allergies No Known Allergies [No Known Allergies*] Allergy (Verified 10/14/22 14:45) Medication List - Last Reconciled 10/14/22 by Syed Maxwell MD amitriptyline 25 mg PO BEDTIME carbamide peroxide 6.5% (Ear Drops (carbamide peroxide)) 5 drps otic (ears) Q6H hydrochlorothiazide 12.5 mg PO QAM levothyroxine 150 mcg PO DAILY losartan 100 mg PO DAILY metformin ER 1,000 mg PO BID methotrexate sodium 2.5 mg PO QWEEK multivitamin 1 tab PO DAILY omeprazole 20 mg PO BID pravastatin 20 mg PO DAILY HPI HPI Comments History of Present Illness Details 71-year-old female with seronegative RA presents for follow-up. Enbrel could not get approved, and she would have to pay a large co-pay. She is not on any DMARDs currently. She states that she has been using Advil 200 mg around twice a week for her generalized joint pain. She continues to have bilateral knee swelling, worse on the left but it does not hurt as much. Occasional foot pain. She is walking normally. Is no longer using a cane. lost a few lb since last visit. Initial history: Female with a past medical history of hypothyroidism, asthma, hypertension, bilateral knee OA who is here for evaluation of multiple joint pains. She has started to have bilateral knee pain about 4 years ago. Her joint pain became progressively worse. She had her right knee replaced last year without relief of her knee pain. She continues to have bilateral knee pain, associated with swelling, usually worse in the morning. Associated with 30 minutes of stiffness. Over the last 4-5 months she also has been noticing pain and stiffness in her hands, she has difficulty gripping objects sometimes. Also recently she has been having pain in her toes with walking, usually at the bottom of her feet. She takes meloxicam 15 mg as needed for pain which provides about 80% relief. She has lost about 5 lb over the last month unintentionally, no fever or chills. No skin rashes. Denies abortions or miscarriages. No history of DVT/PE [facility] Medical History Arthritis Asthma Back pain Chronic cough Diabetes mellitus Elevated cholesterol Encounter for testing for latent tuberculosis infection GERD (gastroesophageal reflux disease) HTN (hypertension) Hypothyroid Insomnia Migraine Osteoarthritis of right knee Surgical History History of corneal transplant History of laparoscopic appendectomy History of total right knee replacement (~12/2019) Hx of colonoscopy Hx of dilation and curettage Hx of tubal ligation Status post cataract extraction and insertion of intraocular lens of left eye Status post total right knee replacement Family History Mother Leukemia Social History Household Members: Family Housing: House Are you a 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 neonatal intensive care nurse to a significant other at home: Yes Do you presently have visiting nurse or other home services: No Alcohol intake: never Patient Tobacco Use Status: Never used Tobacco e-Cigarette/Vaping Use: Never Used Second Hand Smoke Exposure: No service: No Current occupational status: unemployed 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, Reports joint swelling and Reports stiffness Physical Exam Vital Signs: Last Vital Signs Temp 98 F 10/14/22 14:46 Pulse 98 10/14/22 14:46 BP 136/84 10/14/22 14:46 Pulse Ox 100 10/14/22 14:46 Oxygen Delivery Method Room Air 10/14/22 14:46 BMI result Body Mass Index 27.6 Const General: cooperative, healthy appearing, comfortable and no acute distress Nutritional Appearance: overweight Orientation/consciousness: patient oriented x3 Limitations: no limitations HEENT Head: Yes normocephalic and Yes atraumatic Resp Effort & Inspection: normal respiratory effort and able to speak in complete sentences Skin General skin exam: no rashes or lesions noted Neuro General: patient oriented x3 Extrem Other: Normal nailfold capillaroscopy Puffiness of MCPs bilaterally with no tenderness. Negative MCP and PIP squeeze test both hands Bilateral knee pain with flexion and extension Left knee swelling without warmth or erythema Bilateral metatarsal squeeze test positive Assessment & Plan Assessment & Plan (1) Rheumatoid arthritis: Code(s): M06.9 - Rheumatoid arthritis, unspecified Qualifiers: Rheumatoid arthritis location: multiple sites Rheumatoid factor presence: without rheumatoid factor Qualified Code(s): M06.09 - Rheumatoid arthritis without rheumatoid factor, multiple sites Plan: 71-year-old female with seronegative RA presents for follow-up. Patient failed methotrexate. She did not get Enbrel or Humira as she would have a very high co-pay. Patient has been using Advil 200 mg 2 to 3 times a week with significant improvement of her knee pain. She is no longer using a cane. There are no features of inflammatory arthritis today. Likely degenerative arthritis. Can continue to use Advil 20 mg 2 to 3 times a week if helpful. I suggested trial of Voltaren gel 4 times a day Follow-up in 9 months Coding Level of Care Code Est Pt Level 3 (21841) Diagnoses Rheumatoid arthritis M06.09 Rheumatoid arthritis location: multiple sites Rheumatoid factor presence: without rheumatoid factor
[2022-10-14 14:46] VITALS: BP 136/84; PULSE 98; TEMP 36.6; O2SAT 100; BMI 27.6
== END 2022-10-14 15:30 | disposition home or self-care (01) ==
PROVIDERS: PCP Internal Medicine; Visit Provider Student in an Organized Health Care Education/Training Program
DX: M06.09 Rheumatoid arthritis without rheumatoid factor, multiple sites (principal)
CPT/HCPCS: 99213

== ENCOUNTER → 2022-10-14 14:42 | Outpatient (BNVA) | payer MEDICARE, SELFPAY | PROVIDERS: Visit Provider Student in an Organized Health Care Education/Training Program | DX: M06.09 Rheumatoid arthritis without rheumatoid factor, multiple sites (principal); M17.0 Bilateral primary osteoarthritis of knee; Z96.651 Presence of right artificial knee joint | CPT/HCPCS: 99212 ==